=== PATIENT | female | born 1950 | race Caucasian/White ===

== ENCOUNTER → 2018-03-30 07:01 | Outpatient (CLI) | payer MEDICARE, SELFPAY ==
[2018-03-30 10:51] LABS: AST(SGOT) 23 U/L (15-37); Alanine Aminotransfer ALT/SGPT 41 U/L (13-56); Albumin, Serum 3.9 g/dL (3.2-5.0); Alkaline Phosphatase 83 U/L (45-117); Anion Gap 8 (5-15); BUN 17 mg/dL (7-18); BUN/Creat Ratio 18.6 RATIO (10-20); Calcium,Total 9.4 mg/dL (8.5-10.1); Chloride 106 mmol/L (98-107); Cholesterol 222 mg/dL (200); Creatinine, Serum 0.92 mg/dL (0.55-1.02); EST Glomerular Filtration Rate 65 mL/min (>60); Est Glom Filt Rate - Afr Amer 78 mL/min (>60); Ferritin 49 ng/mL (8-252); Globulin 4.1 g/dL (2.2-4.2); Glucose 90 mg/dL (74-106); High Density Lipoprotein 64 mg/dL; Potassium 3.8 mmol/L (3.5-5.1); Sodium Level 142 mmol/L (136-145); Thyroid Stim Hormone (TSH) 1.37 uIU/mL (0.358-3.74); Triglycerides 63 mg/dL; Very Low Density Lipoprotein 13 mg/dL (5-40)
[2018-03-30 11:57] LABS: Microalbumin,Random Urine 9.2 mg/L (NO RANGE EST.); Microalbumin:Creatinine Ratio 6.6 mg/g CRE (<30 mg/g CRE)
== END ==
PROVIDERS: Family Provider Family Medicine; PCP Family Medicine; Referring Provider Family Medicine; Visit Provider Family Medicine
DX: I10 Essential (primary) hypertension (principal); E78.00 Pure hypercholesterolemia, unspecified; R25.2 Cramp and spasm
CPT/HCPCS: 36415; 80053; 80061; 82043; 82570; 82728; 84443

== ENCOUNTER → 2018-10-21 15:08 | Outpatient (CLI) | payer OTHER, SELFPAY ==
[2018-10-21 17:25] LABS: Absolute Lymphocyte Count 2.72 X10^3/ul (0.83-4.51); Absolute Neutrophil Count 4.1 X10^3/uL (2.0-7.7); Basophil# 0.02 X10^3/uL; Basophil% 0.3 % (0-1); Eosinophil# 0.21 X10^3/uL; Eosinophils% 2.8 % (0-5); Hematocrit 40.7 % (37-47); Hemoglobin 13.2 g/dl (12.0-15.0); Lymphocyte # 2.72 X10^3/ul (4.0); Mean Corp Hgb Conc 32.4 g/gl (32-36); Mean Corpuscular Hgb 30.2 pg (27.0-32.0); Mean Corpuscular Volume 93.1 fL (81-99); Mean Platelet Vol. 10.7 fl (6.2-12.0); Monocyte# 0.47 X10^3/uL; Monocyte% 6.2 % (0-10); Neutrophil # 4.11 X10^3/uL (2.7-7.7); Neutrophil % 54.4 % (47-70); Platelet Count 298 K/mm3 (150-450); RBC Distribution Width CV 13.5 % (11.6-14.6); RBC Distribution Width SD 45.8 fl (35.1-43.9); Red Blood Count 4.37 M/mm3 (4.2-5.4); White Blood Count 7.6 K/mm3 (4.4-11.0)
[2018-10-21 17:26] LABS: POSITIVE COUNT NO; POSITIVE DIFFERENTIAL NO; POSITIVE MORPHOLOGY NO
[2018-10-21 17:41] LABS: Vitamin B12 664 pg/mL (211-911)
[2018-10-21 18:13] LABS: AST(SGOT) 20 U/L (15-37); Alanine Aminotransfer ALT/SGPT 37 U/L (13-56); Albumin, Serum 4.1 g/dL (3.2-5.0); Alkaline Phosphatase 75 U/L (45-117); Anion Gap 10 (5-15); BUN 14 mg/dL (7-18); BUN/Creat Ratio 16.5 RATIO (10-20); CRP < 2.90 mg/L (0.0-3.0); Calcium,Total 9.7 mg/dL (8.5-10.1); Chloride 104 mmol/L (98-107); Creatinine, Serum 0.85 mg/dL (0.55-1.02); EST Glomerular Filtration Rate 70 mL/min (>60); Est Glom Filt Rate - Afr Amer 85 mL/min (>60); Ferritin 57 ng/mL (8-252); Globulin 4.3 g/dL (2.2-4.2); Glucose 84 mg/dL (74-106); Potassium 3.3 mmol/L (3.5-5.1); Protein, Total 8.4 g/dL (6.4-8.2); Sodium Level 142 mmol/L (136-145); T4 Free Direct 1.05 ng/dL (0.76-1.46); Thyroid Stim Hormone (TSH) 1.35 uIU/mL (0.358-3.74)
[2018-10-25 19:40] LABS: Anti-Thyroglobulin AB < 1.0 IU/mL (0.0-0.9); Thyroglobulin, Serum Qt. 6.4 ng/mL (1.5-38.5); Thyroid Peroxidase AB 11 IU/mL (0-34)
== END ==
PROVIDERS: Family Provider Family Medicine; PCP Family Medicine; Referring Provider Family Medicine; Visit Provider Family Medicine
DX: L65.9 Nonscarring hair loss, unspecified (principal); R10.31 Right lower quadrant pain
CPT/HCPCS: 80053; 82607; 82728; 82746; 84432; 84439; 84443; 85025; 86140; 86376; 86800

== ENCOUNTER → 2018-10-28 08:11 | Outpatient (CLI) | payer MEDICARE, SELFPAY ==
--- NOTE | 2018-10-28 08:17 | US_ITS ---
STUDY: ULTRASOUND OF THE FEMALE PELVIS - COMPLETE REASON FOR EXAM: Female, 68 years old. Right-sided pelvic pain. History of endometriosis. LMP: The patient is postmenopausal. TECHNIQUE: Transabdominal and Transvaginal TECHNICAL QUALITY: Adequate. COMPARISON: None. FINDINGS: The uterus is anteverted and is in a midline position. The uterus measures 6.3 cm x 3.7 cm by 3.1 cm. Normal uterine cervix. The endometrium is thickened and measures 11 mm in thickness, and is hyperechoic with cystic changes.. There is no demonstrated endometrial mass. There is no demonstrated myometrial mass. I.U.D. - The patient does not have an I.U.D. The right ovary is visualized. The right ovary is enlarged and measures 9 cm x 7.2 cm x 5.8 cm. There is an 8.5 cm x 6.2 Sino by 5 cm pedunculated cystic structure with low-level echoes within it. There is no visualized right adnexal mass or complex lesion. There is normal arterial and normal venous vascularity. The patient is status post left nephrectomy. There is no fluid in the cul-de-sac. The pre void volume of the bladder was 278 ml. Polycystic ovary disease: No. US/Pelvic (Non ) IMPRESSION: Thickened endometrium. Large right ovarian cyst with low-level echoes within it. Electronically Signed: Prasad Marroquin, at 15:33 EDT , Service support ,
--- NOTE | 2018-10-28 08:17 | US_ITS ---
STUDY: ABDOMINAL ULTRASOUND REASON FOR EXAM: Female, 68 years old. Right-sided pain TECHNIQUE: Transabdominal ultrasound was performed with real-time and static brenner scale imaging. TECHNICAL QUALITY: Adequate. COMPARISON: None. FINDINGS: Liver: The liver measures 12.5 cm. There is increased echogenicity consistent with fatty infiltration. The bile ducts are within normal limits. There is hepatic color flow. The direction of portal flow is hepatopetal. There is a 1.7 x 1.5 cm cyst in the left lobe of the liver. Gallbladder: Normal distended gallbladder. The gallbladder wall measures 2 mm. There is a negative sonographic Crisostomo's sign. There is no pericholecystic fluid. There are no gallstones. There is a 4 mm polyp in the gallbladder. Common Bile Duct (C.B.D.): The common bile duct measures 2 mm. Pancreas: The pancreatic head and body are within normal limits. The pancreatic tail is not well visualized. There is no demonstrated pancreatic mass or cyst. Spleen: Normal size of the spleen. The spleen measures 7.0 cm. Right Kidney: Normal size of the right kidney. The right kidney measures 9.80 cm. Normal renal cortex. There is a 1.2 cm parapelvic cyst. There is no right hydronephrosis. Left Kidney: Normal size of the left kidney. The left kidney measures 9.7 cm. Normal renal cortex. There is a 1.6 x 1.3 cm septated cyst in the left kidney. There are additional simple cysts noted. There is no left hydronephrosis. Aorta: The aorta is normal in caliber. Atherosclerotic plaques are noted. I.V.C.: The IVC is patent. There is no ascites. US/Abdomen Complete IMPRESSION: Fatty infiltration of the liver with a simple cyst in the left lobe. 4 mm gallbladder polyp. Otherwise, normal gallbladder. Bilateral renal cysts, including a septated cyst in the left kidney. If indicated, a renal protocol CT or MRI can be performed. Electronically Signed: Onesimo Arce, at 16:58 EDT Tel , Service support ,
== END ==
PROVIDERS: Family Provider Family Medicine; PCP Family Medicine; Referring Provider Family Medicine; Visit Provider Family Medicine
DX: R10.31 Right lower quadrant pain (principal)
CPT/HCPCS: 76700; 76830; 76856

== ENCOUNTER → 2018-11-03 06:06 | Outpatient (CLI) | payer MEDICARE, SELFPAY ==
[2018-11-04 10:22] LABS: Cancer Antigen 125 18.8 U/mL (0.0-38.1)
== END ==
PROVIDERS: Family Provider Family Medicine; PCP Family Medicine; Referring Provider Obstetrics & Gynecology; Visit Provider Obstetrics & Gynecology
DX: R19.00 Intra-abdominal and pelvic swelling, mass and lump, unspecified site (principal)
CPT/HCPCS: 36415; 82378; 86304

== ENCOUNTER 2018-12-23 07:39 | Day surgery (SDC) | payer MEDICARE, SELFPAY ==
[2018-11-05 16:14] VITALS: BMI 24.3
[2018-12-14 13:08] VITALS: BMI 24.3
--- NOTE | 2018-12-17 07:25 | EKG12_ITS ---
Test Reason : PRE-OP Blood Pressure : / mmHG Vent. Rate : 058 BPM Atrial Rate : 058 BPM P-R Int : 142 ms QRS Dur : 084 ms QT Int : 428 ms P-R-T Axes : 052 008 016 degrees QTc Int : [address] abnormality, possible digitalis effect Abnormal ECG Confirmed by ANGELA CASTANEDA, JASMYN ([id number]), proposal editor AMI SMILEY ([id number]) on 12/20/2018 11:54:24 AM Referred By: Rowena Monahan Confirmed By:JASMYN MILLER MD
[2018-12-17 07:47] LABS: Hematocrit 41.3 % (37-47); Hemoglobin 13.5 g/dL (12.0-15.0); Mean Corp Hgb Conc 32.7 g/dL (32-36); Mean Corpuscular Hgb 30.7 pg (27.0-32.0); Mean Corpuscular Volume 93.9 fL (81-99); Mean Platelet Vol. 10.5 fl (6.2-12.0); Platelet Count 259 K/mm3 (150-450); RBC Distribution Width CV 12.9 % (11.6-14.6); RBC Distribution Width SD 44.4 fl (35.1-43.9); White Blood Count 5.3 K/mm3 (4.4-11.0)
[2018-12-17 08:05] LABS: Internal QC Validated? YES +Cl - CLEAR BKGD; Pregnancy, Serum, hCG Quali. NEGATIVE Negative
[2018-12-17 08:08] LABS: Anion Gap 5 (5-15); BUN 19 mg/dL (7-18); BUN/Creat Ratio 19.8 RATIO (10-20); Calcium,Total 9.9 mg/dL (8.5-10.1); Chloride 104 mmol/L (98-107); Creatinine, Serum 0.96 mg/dL (0.55-1.02); EST Glomerular Filtration Rate 61 mL/min (>60); Est Glom Filt Rate - Afr Amer 74 mL/min (>60); Glucose 97 mg/dL (74-106); Potassium 3.7 mmol/L (3.5-5.1); Sodium Level 139 mmol/L (136-145)
[2018-12-23] VITALS (7 sets, daily range): BP systolic 130–146; BP diastolic 66–95; PULSE 43–69; RESP 12–16; TEMP 36–36.6; O2SAT 94–100; BMI 24.2
--- NOTE | 2018-12-23 05:41 | HP.PCM_ITS ---
- Problem List (1) Endometrial thickening on ultrasound Status: Acute Comment: d and c hysteroscopy have symphion available (2) Ovarian cyst, right Status: Acute Comment: plan laparoscopic RSO CW History and Physical Date of Admission: 12/23/18 Intake Vital Signs 12/14/18 Body Mass Index (BMI) 24.3 12/14/18 Height 5 ft 7 in 12/14/18 Weight: 155 lb 8 oz 12/14/18 Body Mass Index (BMI) 24.3 12/14/18 Blood Pressure 124/80 H Intake Visit Reasons: pre op- soap/folder Automatic Lathe Setter Required: No Accompanied by: Is patient in pain?: No Allergies No Known Allergies Allergy (Verified 12/14/18 13:04) Medications biotin 10,000 mcg capsule mcg PO cap 11/05/18 [History Confirmed 12/14/18] calcium carbonate-vitamin D3 600 mg (1,500 mg)-400 unit capsule cap PO cap 11/05/18 [History Confirmed 12/14/18] hydrochlorothiazide 12.5 mg tablet 12.5 mg PO DAILY 11/05/18 [History Confirmed 12/14/18] multivitamin tablet 1 tab PO DAILY 11/05/18 [History Confirmed 12/14/18] omega-3 fatty acids 1,000 mg capsule 1,000 mg PO DAILY 11/05/18 [History Confirmed 12/14/18] potassium citrate ER 5 mEq (540 mg) tablet,extended release 5 meq PO DAILY 11/05/18 [History Confirmed 12/14/18] red yeast rice 600 mg capsule 600 mg PO DAILY 11/05/18 [History Confirmed 12/14/18] Is last menstrual period known: No Post menopausal: Yes Patient : No : No PFSH Medical History Hypokalemia (Acute) Hypertension (Chronic) Surgical History H/O unilateral salpingectomy (Acute) History of (Acute) S/P bunionectomy (Acute) S/P carpal tunnel release (Acute) S/P oophorectomy (Acute) Family History Mother Hypertension Coronary artery sclerosis Renal failure Father Coronary artery sclerosis Heart disease Social History (Updated 12/14/18 @ 13:23 by Rowena Monahan MD) Smoking Status: Former smoker alcohol intake: never substance use type: does not use caffeine: Yes what type of physical activity do you participate in: walking, yoga, weight training frequency: 3-4 times per week seatbelt use: always do you feel safe at home: Yes additional social history: - Krzysztof Patient and are both retired HPI pre op- soap/folder: Details: DARYN LUJAN is a 68 year old who presents for preop appointment. she has endometrial thickening and an ovarian cyst Pelvic ultrasound findings The right ovary is enlarged and measures 9 cm x 7.2 cm x 5.8 cm. There is an 8.5 cm x 6.2 Sino by 5 cm pedunculated cystic structure with low-level echoes within it. There is no visualized right adnexal mass or complex lesion. There is normal arterial and normal venous vascularity. Female Reproductive History Menopausal Symptoms: No night sweats Pregancy History 4 Elective abortions Hx Para 1 Spontaneous abortions 1 Hx # Term Pregnancies 2 Ectopic pregnancies 1 Hx # Pregnancies Multiple births # of living children 1 Past Pregnancies Del. Date Name GA/Weeks Outcome Route Bth Weight Gen Labor Lgth Anesthesia Del Locatn Provider FOB Unknown Anya-1979 ROS Const Constitutional: Denies fatigue, night sweats, weight gain or weight loss ENT ENT: Reports system reviewed and no additional complaints, except as docu Cardio Card: Denies chest pain Resp Resp: Denies cough or dyspnea GI GI: Reports as per HPI; denies abdominal pain, constipation, nausea or vomiting : Denies nipple discharge, urinary frequency, urinary incontinence, urinary hesitancy, urinary urgency, vaginal discharge, vaginal dryness, vaginal odor or vaginal itching Musc Musc: Denies joint pain, back pain or muscle weakness Skin Skin/Breast: Denies hair loss, change in hair, dry skin, breast lump, breast pain, breast skin changes or nipple discharge Neuro Neuro: Reports system reviewed and no additional complaints, except as docu Psych Psych: Reports system reviewed and no additional complaints, except as docu Endo Endo: Denies cold intolerance, excessive sweating, heat intolerance or increased thirst Jose Luis/Lymph Hematologic/Lymphatic: Denies easy bleeding, Denies easy bruising, Denies enlarged lymph nodes Exam Const General: cooperative, healthy appearing, comfortable, no acute distress, well developed Orientation: alert [facility] [place] Head: normal to inspection, normocephalic Ears: hearing grossly normal bilaterally, external ears normal Nose: external nose normal, nares normal Face and sinus: normal facial exam Neck Neck: normal visual inspection, no lymphadenopathy Thyroid: thyroid normal Chest Chest palpation & inspection: normal inspection of the chest Resp Effort & Inspection: normal respiratory effort Auscultation: clear to auscultation bilaterally Cardio Rate: regular rate Rhythm: regular rhythm Heart Sounds: S1 normal, S2 normal GI Inspection: normal to inspection, non-distended Palpation: soft, no hepatosplenomegaly Musc Other: gross motor intact no deficits, full bilateral strength Skin General: no rashes or lesions noted Neuro General: alert, awake, moves all extremities, no focal motor deficits Motor: muscle tone normal throughout Extrem General: normal to inspection, no pedal edema Psych Appearance: grossly normal Mental Status: mental status grossly normal Affect: normal affect Speech and Movement: speech and movement normal Assessment & Plan Problems 1. Ovarian cyst, right N83.201 plan laparoscopic RSO CW 2. Endometrial thickening on ultrasound R93.89 d and c hysteroscopy have symphion available Plan discussed surgical risks including risks of anesthesia, infection, bleeding, injury to bowel, bladder or blood vessels, and patient wishes to proceed with surgery. Coding Level of Care Code No Charge Diagnoses Ovarian cyst, right N83.201 Endometrial thickening on ultrasound R93.89 UPDATE- I have seen the patient and performed any clinically relevant updates to the history and physical exam. Rowena Monahan MD
--- NOTE | 2018-12-23 09:15 | OV_PTH ---
PATIENT: DARYN LUJAN LOC: [facility] [place] U#:[id number] AGE/SX: 68/F ROOM: RE12/23/[address]: Dr. Rowena Monahan MD : 1950 BED: DIS: 12/23/2018 SPEC #: [id number] RECD: 12/23/18 12:21 STATUS: ABENA IRASEMA #: [id number] CROW: 12/23/18 09:[address]: Rowena Monahan DEPT: SURGICAL PATHOLOGY RECD BY: Malik Lemon ENTERED: 12/23/18 13:33 SP TYPE: OVARY OTHR DR: Dr. Torrey Allison MD Tissues: A - Right ovary B - Endometrium, NOS Procedures: Surgery Specimen Level IV Surgery Specimen Level V HEADER OPERATION: Hysteroscopy, D & C PRE-OP DIAGNOSIS: Endometrial polyp, endometrial thickening TISSUE SUBMITTED: A - Right ovary, B - Endometrial curettings MICROSCOPIC DIAGNOSIS A. Right ovary: Consistent with papillary cystadenofibroma. Negative for malignancy. B. Endometrial curettings: Consistent with fragments of benign endometrial polyp with simple cystic hyperplasia without atypia. SJ:gabriel 12/24/18 COMMENT Please correlate with corresponding cytology specimen ([id number]). Case has been reviewed in consultation with Dr. Logan who concurs with the above diagnosis. IDC:AM MICROSCOPIC DESCRIPTION Slides are reviewed. GROSS DESCRIPTION A - Received in fixative is one container labeled with the patient's name and designated right ovary. The specimen consists of a previously, partially opened cystic ovary with attached adipose tissue weighing 29 gm and measuring 7 x 5.5 x 3.5 cm. The outer surface is pink, slightly ragged without any papillation. The outer surface is inked black. The cyst wall shows multiple area of papillation. The cyst wall measures up to 1 cm in thickness. Social Work Faculty Member sections are submitted in six cassettes. Cassette 6 also contains the attached adipose tissue. B - Received in fixative is one container labeled with the patient's name and designated endometrial tissue. The specimen consists of multiple irregular fragments of whalen soft tissue that in aggregate measure 4 x 3 x 0.3 cm. The entire specimen is submitted in two cassettes. / SHLOMO:gabriel 12/23/18 TC:1 CPT: 15808, 74713
--- NOTE | 2018-12-23 09:15 | FLU_PTH ---
PATIENT: DARYN LUJAN LOC: [facility] [place] U#:[id number] AGE/SX: 68/F ROOM: RE12/23/[address]: Dr. Rowena Monahan MD : 1950 BED: DIS: 12/23/2018 SPEC #: [id number] RECD: 12/23/18 12:21 STATUS: ABENA IRASEMA #: [id number] CROW: 12/23/18 09:[address]: Rowena Monahan DEPT: CYTOLOGY RECD BY: Malik Lemon ENTERED: 12/23/18 13:32 SP TYPE: Fluid OTHR DR: Dr. Torrey Allison MD Tissues: A - Endometrium, NOS B - OVARIAN CYST Procedures: Special Stain Group II Surgery Specimen Level IV Cytospin Fluid HEADER OPERATION: Hysteroscopy, D & C PRE-OP DIAGNOSIS: Endometrial polyp, endometrial thickening TISSUE SUBMITTED: A - Cell washings for cytology, B - Right ovarian cyst contents DIAGNOSIS CYTOLOGY A. Cell washings for cytology (cytospin and cell block): Negative for malignant cells. See cytology study and comment. B. Right ovarian cyst contents: Negative for malignant cells. See cytology study and comment. SJ:rg 12/24/18 COMMENT Please also correlate with corresponding surgical specimen ([id number]) right ovary with diagnosis of papillary cystadenofibroma. Case has been reviewed in consultation with Dr. Logan who concurs with the above diagnosis. IDC:AM CYTOLOGY STUDY Slides are reviewed. A. The specimen consists of numerous strips and clusters of benign mesothelial cells. B. The specimen consists of numerous macrophages and benign epithelial cells. CYTOLOGY GROSS A - Received is 42 ml of clear colorless fluid labeled with the patient's name and and designated per the requisition as cell washings. Submitted for cytology preparation including cell block. B - Received is 47 ml of clear colorless fluid labeled with the patient's name and and designated per the requisition as right ovarian cyst contents. Submitted for cytology preparation including cell block. / 12/23/18 TC:5 CPT: 46882 x2, 63105 x2
--- NOTE | 2018-12-23 09:40 | OP.PCM_ITS ---
Problem List (1) Endometrial thickening on ultrasound Status: Acute Comment: d and c hysteroscopy have symphion available (2) Ovarian cyst, right Status: Acute Comment: plan laparoscopic RSO CW Report of Operation Date of Procedure: 12/23/18 Pre-Operative Diagnosis: ovarian cyst and endometrial polyp Post-Operative Diagnosis: same Surgery/Procedure Performed:: Laparoscopic right oophorectomy D&C operative hysteroscopy Symphion removal of polyp Description of Surgical Findings:: right ovarian cyst with mucinous fluid and scar tissue omental around entire ovary and to right pelvic side wall wood [employer] wood [employer] labourer: Adrián Rodríguez Type of Anesthesia:: General Special Medications: none Specimen's removed: emc, right ovary, pelvic washings Drains: none Estimated Blood Loss (mL): 25 Fluids Replaced: Crystalloid Description of Procedure: Patient was taken in the operating room and was placed under general anesthesia was prepped and draped in normal sterile fashion in the dorsal lithotomy position. Bladder was drained of clear urine and SCDs were on preoperatively. Uterus was sounded and a uterine manipulator was placed after dilating. Attention was then paid to the abdominal portion of the procedure and the umbilicus was elevated with towel clamps and injected with Marcaine and after a 5 mm incision was made and the Veress needle was entered into the abdomen confirmed to be intra-abdominal with a low opening pressure of less than 5 mmHg. Abdomen was insufflated with CO2 gas and a 5 mm optical trocar was placed under direct visualization. A right and left lower quadrant 5 mm ports placed under direct visualization. Uterus was well visualized and left fallopian tube and ovary were noted to be absent in the right fallopian tube was noted to be absent with a significantly enlarged and abnormal appearing right ovary with omental adhesions covering the entire surface and the ovary attached to the right ovarian fossa. Omentum was attached to the right anterior lower abdominal wall. Omental to anterior abdominal wall adhesions were taken down with the LigaSure device followed by the omental to ovarian adhesions and the ovary was freed up out of the ovarian fossa but spontaneous drainage of the cyst occurred for mucinous fluid. Pelvic washings had been taken prior to the cyst rupture. Cyst fluid was removed and sent to pathology for analysis. Adhesio lysis was performed to free the right ovary up from the pelvic sidewall and with good visualization of the ureter, dissection was made superiorly and medially and the ovary was removed from the pelvic sidewall attachments. Ovary was placed in a bag and removed through the umbilical site which was closed with 0 Vicryl through the fascia several stitches. Liver and upper abdomen were visualized notably within normal limits and no other gross abnormalities were seen in the abdomen. All instruments removed from the abdomen after gas was desufflated. Port sites were closed with 3-0 Monocryl Steri's and op sites were applied. A weighted speculum was placed in the vagina and the anterior lip of the cervix was grasped with a single-tooth tenaculum. A paracervical block was placed with 1% lidocaine. Cervix was progressively dilated to allow passage of a 5 mm hysteroscope. The lining was fully visualized and noted to have a large irregular appearing polyp attaching at the left superior fundal part of the uterine lining. Uterine sounded to 8 cm. Using the symphion device, the entire lesion was progressively removed without complications. Direct visual curettage was performed using the device , and all specimens were sent to pathology. All instruments were removed from the vagina and excellent hemostasis was noted. Patient was awoken and taken to recovery in stable condition. All instruments removed from the vagina and patient was awoken and taken recovery in stable condition. Grafts/Implants Used: none - Complications none Multi Select Codes - Urinary/Genital Urinary/Genital CPT Codes: 19071 Hysteroscopy biopsy, 76397 Oophorectomy
--- NOTE | 2018-12-23 09:41 | PCM.DC.TUB ---
Discharge Diet: No Restrictions - Increase fluid intake for the next 48 hours. Discharge Activity: Return to Normal Activity, May Drive - when you are no longer taking narcotic pain medications., May Shower, May Take a Tub Bath - in 7 days Additional Activity Instructions:: Ambulate often the next week after surgery. Nothing in the vagina for 5 days. Call your doctor if your incision/area has: Continuous Slow Oozing, Sudden Increased Bleeding, Increased Pain/ Swelling, Increased Redness, Foul Smelling Discharge Call your doctor if you observe: Fever of 101 or Higher Allergies/Adverse Reactions: Allergies No Known Allergies Allergy (Verified 12/23/18 08:05) Medications to take at Discharge biotin 10,000 mcg capsule 10,000 mcg PO DAILY cap 11/05/18 calcium carbonate-vitamin D3 600 mg (1,500 mg)-400 unit capsule 1 cap PO DAILY cap 11/05/18 hydrochlorothiazide 12.5 mg tablet 12.5 mg PO DAILY 11/05/18 multivitamin tablet 1 tab PO DAILY 11/05/18 potassium citrate ER 5 mEq (540 mg) tablet,extended release 5 meq PO DAILY 11/05/18 red yeast rice 600 mg capsule 1,200 mg PO DAILY 11/05/18 [place]-3 Fatty Acids/Fish Oil [[place]-3 Fish Oil 1,760 mg Stgl] 1 ea PO DAILY 12/16/18 Primary Care Physician: Torrey Allison MD [Primary Care Provider] - Test Results: Test results from this visit will be discussed in further detail at your follow-up appointment, if applicable. Please Follow Up With: Rowena Monahan MD - [phone]
[2018-12-23] MEDS: Bupivacaine 0.25% 30 ML Vial (11:00)
== END 2018-12-23 14:14 | disposition home or self-care (01) ==
LOC: SDC 07:40 → AC 07:40
PROVIDERS: Family Provider Family Medicine; PCP Family Medicine; Referring Provider Obstetrics & Gynecology; Visit Provider Obstetrics & Gynecology
PROC: 0UB98ZZ Excision of Uterus, Via Natural or Artificial Opening Endoscopic (ICD-10-PCS; CPT 58558; principal; 2018-12-23 09:00)
PROC: (CPT 58720; 2018-12-23 09:00)
DX: N84.0 Polyp of corpus uteri (principal); N83.201 Unspecified ovarian cyst, right side; R93.89 Abnormal findings on diagnostic imaging of other specified body structures; E87.6 Hypokalemia; I10 Essential (primary) hypertension; E78.00 Pure hypercholesterolemia, unspecified; K21.9 Gastro-esophageal reflux disease without esophagitis; F41.9 Anxiety disorder, unspecified; Z79.899 Other long term (current) drug therapy; Z78.0 Asymptomatic menopausal state; Z87.891 Personal history of nicotine dependence
CPT/HCPCS: 58558; 58661; 36415; 80048; 84703; 85027; 86850; 86900; 88108; 88305; 88307; 88313; 93005; J7120; J2405

== ENCOUNTER → 2019-01-06 10:49 | Outpatient (CLI) | payer MEDICARE, SELFPAY ==
[2018-12-23 08:13] VITALS: BMI 24.2
[2019-01-06 12:41] LABS: Anion Gap 2 (5-15); BUN 13 mg/dL (7-18); BUN/Creat Ratio 14.6 RATIO (10-20); Calcium,Total 9.7 mg/dL (8.5-10.1); Chloride 107 mmol/L (98-107); Creatinine, Serum 0.89 mg/dL (0.55-1.02); EST Glomerular Filtration Rate 67 mL/min (>60); Est Glom Filt Rate - Afr Amer 80 mL/min (>60); Glucose 88 mg/dL (74-106); Sodium Level 140 mmol/L (136-145)
== END ==
PROVIDERS: Family Provider Family Medicine; PCP Family Medicine; Referring Provider Family Medicine; Visit Provider Family Medicine
DX: Z00.00 Encounter for general adult medical examination without abnormal findings (principal)
CPT/HCPCS: 36415; 80048

== ENCOUNTER → 2019-01-31 10:09 | Outpatient (CLI) | payer MEDICARE, SELFPAY ==
[2018-12-23 08:13] VITALS: BMI 24.2
[2019-01-10 11:02] VITALS: BMI 24.2
--- NOTE | 2019-01-31 10:11 | BI_ITS ---
MAMMOGRAPHY - BILATERAL SCREENING REASON FOR EXAM: Female, 68 years old. Routine annual screening examination. PERTINENT HISTORY: Non-contributory. TECHNIQUE: Digital bilateral breast sophia (3D mammographic acquisition) in the CC and MLO projections. 2-D mediolateral oblique (MLO) and craniocaudad (CC) views of both breasts were obtained. CAD: Full Field Digital Mammography with Computer Added Detection was performed. COMPARISON: Comparison is made with prior study dated April 28, 2017 and April 17, 2014. FINDINGS: Breast Composition: There are scattered areas of fibroglandular density. There are no dominant masses or suspicious calcifications. No other significant abnormalities are identified. There has been no significant change since the prior study. BI/SCREEN MAMM (CAD) W/SOPHIA BILAT IMPRESSION: Stable bilateral screening mammogram. Yearly follow-up mammogram recommended. (A) ASSESSMENT CATEGORY: BIRADS Category 1: Negative. A letter regarding these results will be sent to the patient by the facility within 30 days. Approximately 10% of breast cancers are not detected by mammography. A normal mammogram should not delay biopsy of a clinically suspicious abnormality. [id number] Electronically Signed: Prasad Marroquin, at 11:21 EDT , Service support ,
== END ==
PROVIDERS: Family Provider Family Medicine; PCP Family Medicine; Referring Provider Family Medicine; Visit Provider Family Medicine
DX: Z12.31 Encounter for screening mammogram for malignant neoplasm of breast (principal)
CPT/HCPCS: 77063; 77067

== ENCOUNTER → 2019-07-06 09:30 | Outpatient (CLI) | payer OTHER, SELFPAY ==
--- NOTE | 2019-07-06 | EMB_PTH ---
PATIENT: DARYN LUJAN LOC: [facility] U#:[id number] AGE/SX: 74/F ROOM: RE07/06/[address]: Dr. Rowena Monahan MD : 1950 BED: DIS: SPEC #: [id number] RECD: 07/06/19 13:48 STATUS: ABENA MCGILLPepe #: [id number] CROW: 07/06/19 00:[address]: Rowena Monahan DEPT: SURGICAL PATHOLOGY RECD BY: Nathaniel Banegas ENTERED: 07/06/19 14:08 SP TYPE: ENDOM BX/C CHANG DR: Dr. Torrey Allison MD Tissues: Endometrium, NOS Procedures: Surgery Specimen Level IV HEADER OPERATION: Endometrial biopsy PRE-OP DIAGNOSIS: Endometrial thickening TISSUE SUBMITTED: Endometrial biopsy MICROSCOPIC DIAGNOSIS Endometrium, biopsy: Rare strips of benign glandular epithelium. AM:gabriel 07/07/19 COMMENT Case has been reviewed in consultation with Dr. Spann who concurs with the above diagnosis. IDC:SHLOMO MICROSCOPIC DESCRIPTION Slides are reviewed. GROSS DESCRIPTION Received is one container labeled with the patient's name and not further designated. The specimen consists of a scant amount of soft tissue measuring <0.1 cm in greatest dimension. The specimen is totally submitted for cell block preparation. / SHLOMO:gabriel 07/06/19 TC:5 CPT: 22608
[2019-07-06 09:02] VITALS: BMI 24.8
[2019-07-06 10:12] LABS: Anion Gap 4 (5-15); BUN 17 mg/dL (7-18); BUN/Creat Ratio 13.5 RATIO (10-20); Calcium,Total 9.8 mg/dL (8.5-10.1); Chloride 108 mmol/L (98-107); Creatinine, Serum 1.26 mg/dL (0.55-1.02); EST Glomerular Filtration Rate 45 mL/min (>60); Est Glom Filt Rate - Afr Amer 54 mL/min (>60); Glucose 107 mg/dL (74-106); Potassium 3.8 mmol/L (3.5-5.1); Sodium Level 139 mmol/L (136-145)
[2019-07-06 10:21] LABS: Microalbumin,Random Urine 33.2 mg/L (NO RANGE EST.); Microalbumin:Creatinine Ratio 10.5 mg/g CRE (<30 mg/g CRE)
== END ==
PROVIDERS: PCP Family Medicine; Visit Provider Obstetrics & Gynecology
DX: I10 Essential (primary) hypertension (principal); R93.89 Abnormal findings on diagnostic imaging of other specified body structures
CPT/HCPCS: 36415; 80048; 82043; 82570; 88305

== ENCOUNTER → 2020-01-02 07:12 | Outpatient (CLI) | payer MEDICARE, SELFPAY ==
[2019-07-06 09:02] VITALS: BMI 24.8
[2020-01-02 09:55] LABS: Absolute Lymphocyte Count 2.06 X10^3/uL (0.83-4.51); Absolute Neutrophil Count 2.9 X10^3/uL (2.0-7.7); Basophil# 0.03 X10^3/uL; Basophil% 0.5 % (0-1); Eosinophil# 0.22 X10^3/uL; Eosinophils% 3.9 % (0-5); Hematocrit 41.3 % (37-47); Hemoglobin 12.9 g/dL (12.0-15.0); Lymphocyte # 2.06 X10^3/ul (4.0); Lymphocyte % 36.7 % (19-41); Mean Corp Hgb Conc 31.2 g/dL (32-36); Mean Corpuscular Hgb 29.3 pg (27.0-32.0); Mean Corpuscular Volume 93.9 fL (81-99); Mean Platelet Vol. 10.7 fl (6.2-12.0); Monocyte# 0.43 X10^3/uL; Monocyte% 7.7 % (0-10); NRBC Flagged by Analyzer 0 % (0-5); Neutrophil # 2.87 X10^3/uL (2.7-7.7); Platelet Count 295 K/mm3 (150-450); RBC Distribution Width CV 12.8 % (11.6-14.6); RBC Distribution Width SD 44.2 fl (35.1-43.9); White Blood Count 5.6 K/mm3 (4.4-11.0)
[2020-01-02 10:35] LABS: ALB/GLOB Ratio 1.1 RATIO (0.9-2.4); AST(SGOT) 20 U/L (15-37); Alanine Aminotransfer ALT/SGPT 29 U/L (13-56); Alkaline Phosphatase 82 U/L (45-117); Anion Gap 7 (5-15); BUN 15 mg/dL (7-18); Calcium,Total 9.6 mg/dL (8.5-10.1); Chloride 109 mmol/L (98-107); Cholesterol 227 mg/dL (200); Creatinine, Serum 0.94 mg/dL (0.55-1.02); EST Glomerular Filtration Rate 63 mL/min (>60); Est Glom Filt Rate - Afr Amer 76 mL/min (>60); Globulin 3.7 g/dL (2.2-4.2); Glucose 89 mg/dL (74-106); High Density Lipoprotein 60 mg/dL; Potassium 3.6 mmol/L (3.5-5.1); Protein, Total 7.7 g/dL (6.4-8.2); Sodium Level 143 mmol/L (136-145); Thyroid Stim Hormone (TSH) 1.53 uIU/mL (0.358-3.74); Triglycerides 110 mg/dL; Very Low Density Lipoprotein 22 mg/dL (5-40)
== END ==
PROVIDERS: PCP Family Medicine; Referring Provider Family Medicine; Visit Provider Family Medicine
DX: I10 Essential (primary) hypertension (principal); M19.90 Unspecified osteoarthritis, unspecified site
CPT/HCPCS: 36415; 80053; 80061; 84443; 85025

== ENCOUNTER → 2020-02-02 14:43 | Outpatient (CLI) | payer MEDICARE, SELFPAY ==
[2019-07-06 09:02] VITALS: BMI 24.8
--- NOTE | 2020-02-02 14:44 | BI_ITS ---
MAMMOGRAPHY - BILATERAL SCREENING REASON FOR EXAM: Female, 69 years old. Routine annual screening examination. PERTINENT HISTORY: Non-contributory. TECHNIQUE: Digital bilateral breast sophia (3D mammographic acquisition) in the CC and MLO projections. 2-D mediolateral oblique (MLO) and craniocaudad (CC) views of both breasts were obtained. CAD: Full Field Digital Mammography with Computer Added Detection was performed. COMPARISON: Comparison is made with prior study dated 01/31/2019 and 04/28/2017. FINDINGS: Breast Composition: There are scattered areas of fibroglandular density. There are no dominant masses or suspicious calcifications. No other significant abnormalities are identified. There has been no significant change since the prior study. BI/SCREEN MAMM (CAD) W/SOPHIA BILAT IMPRESSION: Stable bilateral screening mammogram. Yearly follow-up mammogram recommended. (A) ASSESSMENT CATEGORY: BIRADS Category 1: Negative. A letter regarding these results will be sent to the patient by the facility within 30 days. Approximately 10% of breast cancers are not detected by mammography. A normal mammogram should not delay biopsy of a clinically suspicious abnormality. [id number] Electronically Signed: Prasad Marroquin, at 16:13 EDT , Service support ,
--- NOTE | 2020-02-02 14:46 | BD_ITS ---
STUDY: DUAL ENERGY X-RAY ABSORPTIOMETRY / DXA REASON FOR EXAM: Female, 69 years old. Age of tatum- 49. Pat is 159.7# and 66.75 and quot; a loss of 1 and quot; per pat. Past hx of smoking. Past hx of using a diuretic in BPM. Takes 600mg calcium and a multi-vit. Exercises moderately. Fam hx of osteo-grandmothetr. TECHNIQUE: Bone Mineral Density (BMD) measurements of lumbar spine and bilateral hips were obtained. COMPARISON: Comparison is made with prior study dated 04/30/2017. FINDINGS: Lumbar Spine (L1-L4): g/cm2 (1.052) / T-score (-1.0) / Z-score (0.7) Findings are suggestive of normal bone density with a low fracture risk. Left Femur Total: g/cm2 (1.015) / T-score (0.1) / Z-score (1.5) Left Femoral Neck: g/cm2 (0.928) / T-score (-0.8) / Z-score (0.9) Right Femur Total: g/cm2 (1.024) / T-score (0.1) / Z-score (1.6) Right Femoral Neck: g/cm2 (0.888) / T-score (-1.1) / Z-score (0.6) The T-Scores on the most recent prior examination were: Lumbar Spine (L1-L4): There has been improvement of bone density since the previous examination. Left Femur Total: which represents a worsening of 2.3%. Right Femur Total: which represents a worsening of 0.8%. BD/Dexa Bone Density Study IMPRESSION: The patient is considered osteopenic as outlined below according to World Josh Organization (WHO) criteria with a low fracture risk. There has been worsening of bone density since the previous examination. Reference Information: The T-score is the number of standard deviations above or below the standard which is normal for young adults at their peak bone mineral density. The World Health Organization (WHO) interprets the T-scores as follows: Above -1 Normal bone density Between -1 and -2.5 Osteopenia Equal to / or below -2.5 Osteoporosis As a practical clinical guideline, osteopenia may be graded as follows: Mild -1 through -1.5 Moderate -1.6 through -2.0 Severe -2.1 through -2.4 The Z-score is the number of standard deviations above or below age-matched controls. A Z-score of less than -1.5 would be considered abnormal. References: 1. NIH Osteoporosis and Related Bone Diseases http://www.osteo.org 2. International Society for Clinical Densitometry http://www.iscd.org 3. National Osteoporosis Foundation http://www.nof.org Electronically Signed: Prasad Marroquin, at 15:23 EDT , Service support ,
== END ==
PROVIDERS: PCP Family Medicine; Referring Provider Family Medicine; Visit Provider Family Medicine
DX: Z12.31 Encounter for screening mammogram for malignant neoplasm of breast (principal); Z78.0 Asymptomatic menopausal state; M85.80 Other specified disorders of bone density and structure, unspecified site; Z87.891 Personal history of nicotine dependence
CPT/HCPCS: 77063; 77067; 77080

== ENCOUNTER → 2020-04-25 | Outpatient (CLI) | payer MEDICARE, SELFPAY ==
[2020-04-25 10:13] VITALS: BMI 25.0
--- NOTE | 2020-04-25 10:30 | EMB_PTH ---
PATIENT: DARYN LUJAN LOC: [facility] U#:[id number] AGE/SX: 69/F ROOM: RE04/25/[address]: RENEA Barber : 1950 BED: DIS: 04/25/2020 SPEC #: [id number] RECD: 04/25/20 12:14 STATUS: ABENA IRASEMA #: [id number] CROW: 04/25/20 10:[address]: Luna Jackson NP DEPT: SURGICAL PATHOLOGY RECD BY: Hiwot You ENTERED: 04/25/20 13:30 SP TYPE: ENDOM BX/C CHANG DR: Dr. Torrey Allison MD Tissues: Endometrium, NOS Procedures: Surgery Specimen Level IV HEADER OPERATION: Endometrial biopsy PRE-OP DIAGNOSIS: PMB TISSUE SUBMITTED: Endometrial biopsy scant amount MICROSCOPIC DIAGNOSIS Endometrium, biopsy: Scant strips of benign superficial glandular mucosa. AM:gabriel 04/26/20 MICROSCOPIC DESCRIPTION Slides are reviewed. GROSS DESCRIPTION Received is one container labeled with the patient's name and not further designated. The specimen consists of light whalen mucoid material aggregating to 1 x 1 x <0.1 cm. The specimen is totally submitted in one cassette. / AM:gabriel 04/25/20 TC:5 CPT: 09862
== END | disposition home or self-care (01) ==
LOC: LABSPEC 12:38
PROVIDERS: PCP Family Medicine; Referring Provider Nurse Practitioner Women's Health; Visit Provider Nurse Practitioner Women's Health
DX: N95.0 Postmenopausal bleeding (principal)
CPT/HCPCS: 88305

== ENCOUNTER → 2020-04-30 09:18 | Outpatient (CLI) | payer MEDICARE, SELFPAY ==
[2020-04-25 10:13] VITALS: BMI 25.0
--- NOTE | 2020-04-30 09:20 | US_ITS ---
STUDY: ULTRASOUND TRANSVAGINAL CLINICAL: Female, 69 years old. INTERMITTANT PELVIC PAIN AND BLOATING -- BILAT OOPHORECTOMY TECHNIQUE: Transabdominal and Transvaginal COMPARISON: 10/28/2018 FINDINGS: Normal uterine size measuring 7.3 x 4.2 x 2.4 cm in maximal craniocaudal dimension. Myometrium appears slightly heterogeneous however there is no focal fibroid demonstrated. There are no myometrial masses. Normal endometrial thickness measuring 6 mm. There are no endometrial masses, and there is no fluid in the endometrial cavity. Normal uterine cervix. Normal ovaries are not visualized status post BSO. There is no free fluid in the pelvis. US/Pelvic (Non ) IMPRESSION: Heterogeneous appearance to the uterine myometrium without well-defined fibroid.. No adnexal mass status post bilateral oophorectomy Electronically Signed: Malvin Zapata MD at 22:38 EST , Service support ,
--- NOTE | 2020-04-30 09:20 | US_ITS ---
STUDY: ULTRASOUND TRANSVAGINAL CLINICAL: Female, 69 years old. INTERMITTANT PELVIC PAIN AND BLOATING -- BILAT OOPHORECTOMY TECHNIQUE: Transabdominal and Transvaginal COMPARISON: 10/28/2018 FINDINGS: Normal uterine size measuring 7.3 x 4.2 x 2.4 cm in maximal craniocaudal dimension. Myometrium appears slightly heterogeneous however there is no focal fibroid demonstrated. There are no myometrial masses. Normal endometrial thickness measuring 6 mm. There are no endometrial masses, and there is no fluid in the endometrial cavity. Normal uterine cervix. Normal ovaries are not visualized status post BSO. There is no free fluid in the pelvis. US/Transvaginal Non- IMPRESSION: Heterogeneous appearance to the uterine myometrium without well-defined fibroid.. No adnexal mass status post bilateral oophorectomy Electronically Signed: Malvin Zapata MD at 22:38 EST , Service support ,
== END ==
PROVIDERS: PCP Family Medicine; Referring Provider Nurse Practitioner Women's Health; Visit Provider Nurse Practitioner Women's Health
DX: R10.2 Pelvic and perineal pain (principal)
CPT/HCPCS: 76830; 76856

== ENCOUNTER 2020-07-11 13:24 | Outpatient (RCR) | payer MEDICARE, SELFPAY ==
[2020-04-25 10:13] VITALS: BMI 25.0
== END 2020-07-11 23:59 ==
LOC: IMMUN 13:24
PROVIDERS: PCP Family Medicine; Referring Provider Family Medicine; Visit Provider Family Medicine
DX: Z23 Encounter for immunization (principal)
CPT/HCPCS: 0011A; 0012A; 91301

== ENCOUNTER → 2020-07-12 09:12 | Outpatient (CLI) | payer OTHER, SELFPAY ==
[2020-04-25 10:13] VITALS: BMI 25.0
[2020-07-12 09:15] LABS: Bacteria 0 SEEN /hpf (None Seen); Mucous, Urine 0 SEEN /hpf (<or=2+); Red Blood Cells-Urine 0 SEEN /hpf (0-5)
[2020-07-12 10:09] LABS: Color, Urine Yellow (Yellow); Glucose, Dipstick Normal (Normal); Ketone-Dipstick 5 mg/dl (Negative); Leukocyte Esterase-Dipstick 100 /ul (Negative); Nitrite-Dipstick Negative (Negative); Occult Blood-Urine Negative /ul (Negative); Protein-Dipstick 15 mg/dl (Negative); Urine Bilirubin Dipstick Negative (Negative); Urine Clarity Clear (Clear); Urine Urobilinogen Normal (Normal); Urine pH 6.5 (5.0 - 8.0)
[2020-07-12 10:25] LABS: Squamous Epithelial Cells - UA 0-5 SEEN /hpf (5-10)
[2020-07-12 10:26] LABS: White Blood Cells 0-5 SEEN /hpf (0-5)
[2020-07-12 10:39] LABS: Anion Gap 5 (5-15); BUN 21 mg/dL (7-18); BUN/Creat Ratio 22.3 RATIO (10-20); Calcium,Total 10.3 mg/dL (8.5-10.1); Chloride 101 mmol/L (98-107); Creatinine, Serum 0.94 mg/dL (0.55-1.02); EST Glomerular Filtration Rate 62 mL/min (>60); Est Glom Filt Rate - Afr Amer 75 mL/min (>60); Glucose 103 mg/dL (74-106); Potassium 4.5 mmol/L (3.5-5.1); Sodium Level 135 mmol/L (136-145)
[2020-07-12 10:59] LABS: Microalbumin,Random Urine 19.5 mg/L (NO RANGE EST.); Microalbumin:Creatinine Ratio 28.6 mg/g CRE (<30 mg/g CRE)
== END ==
PROVIDERS: PCP Family Medicine; Referring Provider Family Medicine; Visit Provider Family Medicine
DX: I10 Essential (primary) hypertension (principal)
CPT/HCPCS: 36415; 80048; 81001; 82043; 82570

== ENCOUNTER → 2021-01-11 07:25 | Outpatient (CLI) | payer OTHER, SELFPAY ==
[2021-01-11 10:40] LABS: Vitamin D,25 Hydroxy 24.8 ng/mL
[2021-01-11 10:49] LABS: ALB/GLOB Ratio 1.1 RATIO (0.9-2.4); AST(SGOT) 20 U/L (15-37); Alanine Aminotransfer ALT/SGPT 32 U/L (13-56); Albumin, Serum 4.2 g/dL (3.2-5.0); Alkaline Phosphatase 77 U/L (45-117); Anion Gap 8 (5-15); BUN 17 mg/dL (7-18); BUN/Creat Ratio 17.6 RATIO (10-20); Calcium,Total 9.7 mg/dL (8.5-10.1); Chloride 104 mmol/L (98-107); Cholesterol 250 mg/dL (200); Creatinine, Serum 0.97 mg/dL (0.55-1.02); EST Glomerular Filtration Rate 60 mL/min (>60); Est Glom Filt Rate - Afr Amer 73 mL/min (>60); Globulin 3.7 g/dL (2.2-4.2); Glucose 88 mg/dL (74-106); High Density Lipoprotein 60 mg/dL; Potassium 3.6 mmol/L (3.5-5.1); Protein, Total 7.9 g/dL (6.4-8.2); Sodium Level 140 mmol/L (136-145); Triglycerides 100 mg/dL; Very Low Density Lipoprotein 20 mg/dL (5-40)
[2021-01-11 10:57] LABS: PTHIN 47.8 pg/mL (18.4-80.1)
== END ==
PROVIDERS: PCP Family Medicine; Referring Provider Family Medicine; Visit Provider Family Medicine
DX: E78.00 Pure hypercholesterolemia, unspecified (principal); M85.80 Other specified disorders of bone density and structure, unspecified site
CPT/HCPCS: 36415; 80053; 80061; 82306; 83970

== ENCOUNTER 2021-07-05 09:42 | Outpatient (CLI) | payer OTHER, SELFPAY ==
[2021-07-05 12:08] LABS: Anion Gap 6 (5-15); BUN 19 mg/dL (7-18); BUN/Creat Ratio 20.3 RATIO (10-20); Calcium,Total 9.7 mg/dL (8.5-10.1); Chloride 106 mmol/L (98-107); Creatinine, Serum 0.93 mg/dL (0.55-1.02); EST Glomerular Filtration Rate 63 mL/min (>60); Est Glom Filt Rate - Afr Amer 76 mL/min (>60); Glucose 83 mg/dL (74-106); Potassium 4.2 mmol/L (3.5-5.1); Sodium Level 138 mmol/L (136-145)
[2021-07-05 12:25] LABS: Vitamin D,25 Hydroxy 21.1 ng/mL
== END 2021-07-05 23:59 | disposition home or self-care (01) ==
LOC: MFPLAB 09:46
PROVIDERS: PCP Family Medicine; Referring Provider Family Medicine; Visit Provider Family Medicine
DX: M85.80 Other specified disorders of bone density and structure, unspecified site (principal); I10 Essential (primary) hypertension
CPT/HCPCS: 36415; 80048; 82306

== ENCOUNTER → 2022-01-08 | Outpatient (CLI) | payer OTHER, SELFPAY ==
[2022-01-08 10:41] LABS: Vitamin D,25 Hydroxy 31.8 ng/mL
[2022-01-08 10:46] LABS: Microalbumin:Creatinine Ratio 12.3 mg/g CRE (<30 mg/g CRE)
[2022-01-08 10:52] LABS: AST(SGOT) 20 U/L (15-37); Alanine Aminotransfer ALT/SGPT 25 U/L (13-56); Albumin, Serum 3.8 g/dL (3.2-5.0); Alkaline Phosphatase 74 U/L (45-117); Anion Gap 5 (5-15); BUN 18 mg/dL (7-18); Calcium,Total 9.5 mg/dL (8.5-10.1); Chloride 104 mmol/L (98-107); Cholesterol 223 mg/dL (200); EST Glomerular Filtration Rate 58 mL/min (>60); Est Glom Filt Rate - Afr Amer 70 mL/min (>60); Globulin 3.9 g/dL (2.2-4.2); Glucose 91 mg/dL (74-106); High Density Lipoprotein 56 mg/dL; Potassium 3.7 mmol/L (3.5-5.1); Protein, Total 7.7 g/dL (6.4-8.2); Sodium Level 138 mmol/L (136-145); Triglycerides 94 mg/dL; Very Low Density Lipoprotein 19 mg/dL (5-40)
== END | disposition home or self-care (01) ==
LOC: MTLAB 07:13
PROVIDERS: PCP Family Medicine; Referring Provider Family Medicine; Visit Provider Family Medicine
DX: I10 Essential (primary) hypertension (principal); E78.00 Pure hypercholesterolemia, unspecified; R79.89 Other specified abnormal findings of blood chemistry
CPT/HCPCS: 36415; 80053; 80061; 82043; 82306; 82570; 84443

== ENCOUNTER → 2022-01-17 | Outpatient (CLI) | payer MEDICARE, SELFPAY ==
--- NOTE | 2022-01-17 07:23 | BI_ITS ---
MAMMOGRAPHY - BILATERAL SCREENING REASON FOR EXAM: Female, 71 years old. Routine annual screening examination. PERTINENT HISTORY: Non-contributory. TECHNIQUE: Digital bilateral breast sophia (3D mammographic acquisition) in the CC and MLO projections. 2-D mediolateral oblique (MLO) and craniocaudad (CC) views of both breasts were obtained. CAD: Full Field Digital Mammography with Computer Added Detection was performed. COMPARISON: Comparison is made with prior study dated 02/02/2020 and 01/31/2019. FINDINGS: Breast Composition: There are scattered areas of fibroglandular density. There are no dominant masses or suspicious calcifications. No other significant abnormalities are identified. There has been no significant change since the prior study. BI/SCRN MAMM (CAD)W/SOPHIA BILAT IMPRESSION: Stable bilateral screening mammogram. Yearly follow-up mammogram recommended. (A) ASSESSMENT CATEGORY: BIRADS Category 1: Negative. A letter regarding these results will be sent to the patient by the facility within 30 days. Approximately 10% of breast cancers are not detected by mammography. A normal mammogram should not delay biopsy of a clinically suspicious abnormality. [id number] Electronically Signed: Prasad Marroquin MD at 8:30 EDT ,
== END | disposition home or self-care (01) ==
LOC: OPBI 07:22
PROVIDERS: PCP Family Medicine; Visit Provider Family Medicine
DX: Z12.31 Encounter for screening mammogram for malignant neoplasm of breast (principal)
CPT/HCPCS: 77063; 77067

== ENCOUNTER → 2022-07-15 | Outpatient (CLI) | payer MEDICARE, SELFPAY ==
[2022-07-15 10:17] LABS: ALB/GLOB Ratio 1.1 RATIO (0.9-2.4); AST(SGOT) 21 U/L (15-37); Alanine Aminotransfer ALT/SGPT 30 U/L (13-56); Albumin, Serum 4.1 g/dL (3.2-5.0); Alkaline Phosphatase 82 U/L (45-117); Anion Gap 7 (5-15); BUN 14 mg/dL (7-18); Chloride 107 mmol/L (98-107); Cholesterol 171 mg/dL (200); Creatinine, Serum 0.93 mg/dL (0.55-1.02); EST Glomerular Filtration Rate 63 mL/min (>60); Est Glom Filt Rate - Afr Amer 76 mL/min (>60); Globulin 3.9 g/dL (2.2-4.2); Glucose 105 mg/dL (74-106); High Density Lipoprotein 69 mg/dL; Potassium 4.4 mmol/L (3.5-5.1); Sodium Level 143 mmol/L (136-145); Triglycerides 95 mg/dL; Very Low Density Lipoprotein 19 mg/dL (5-40)
== END | disposition home or self-care (01) ==
LOC: MTLAB 08:00
PROVIDERS: PCP Family Medicine; Referring Provider Family Medicine; Visit Provider Family Medicine
DX: E78.00 Pure hypercholesterolemia, unspecified (principal); R79.89 Other specified abnormal findings of blood chemistry
CPT/HCPCS: 36415; 80053; 80061

== ENCOUNTER 2022-07-22 11:11 | Outpatient (CLI) | payer MEDICARE, SELFPAY ==
--- NOTE | 2022-07-22 11:20 | RAD_ITS ---
STUDY: X-RAY CHEST REASON FOR EXAM: Female, 72 years old. Persistent cough TECHNIQUE: PA and lateral views of the chest. COMPARISON: None. FINDINGS: The lungs are clear and expanded. There is no demonstrated pleural abnormality. Normal size heart. Normal mediastinum and charbel. Normal visualized pulmonary arteries. Normal visualized aortic arch and descending thoracic aorta. Normal visualized thoracic spine. Normal visualized ribs, clavicles, and shoulders. There is no demonstrated abnormality of the visualized soft tissue structures of the upper abdomen. RAD/Chest PA and Lateral IMPRESSION: Normal x-ray examination of the chest. Electronically Signed: Nahum Gay MD at 11:11 EST ,
[2022-07-22 13:05] LABS: Vitamin D,25 Hydroxy 24.7 ng/mL
== END 2022-07-22 23:59 | disposition home or self-care (01) ==
PROVIDERS: PCP Family Medicine; Referring Provider Family Medicine; Visit Provider Family Medicine
DX: R79.89 Other specified abnormal findings of blood chemistry (principal); R05.3 Chronic cough; E55.9 Vitamin D deficiency, unspecified
CPT/HCPCS: 36415; 71046; 82306

== ENCOUNTER → 2022-09-11 | Outpatient (CLI) | payer MEDICARE, SELFPAY ==
--- NOTE | 2022-09-11 08:54 | RAD_ITS ---
EXAM: XR CHEST, 2 VIEWS CLINICAL INDICATION: BRONCHITIS TECHNIQUE: Frontal and lateral views of the chest. This report was created using [employer] report generation technology. COMPARISON: None. FINDINGS: LUNGS AND PLEURAL SPACES: Unremarkable. No consolidation or edema. No pneumothorax. No effusion. HEART: Unremarkable. Cardiac silhouette not enlarged. MEDIASTINUM: Central airways and mediastinal contour are unremarkable. BONES/JOINTS: Unremarkable. SOFT TISSUES: Unremarkable. VASCULATURE: Atherosclerotic calcifications of the nonenlarged thoracic aortic arch. RAD/Chest PA and Lateral IMPRESSION: No acute disease. Electronically Signed: Felipe Saenz MD at 4:17 EDT ,
== END | disposition home or self-care (01) ==
PROVIDERS: PCP Family Medicine; Referring Provider Family Medicine; Visit Provider Family Medicine
DX: J20.9 Acute bronchitis, unspecified (principal)
CPT/HCPCS: 71046; 87798

== ENCOUNTER 2022-10-09 08:00 | Outpatient (RCR) | payer MEDICARE, SELFPAY ==
--- NOTE | 2022-09-01 10:08 | HP.PTEVAL ---
Patient's Visit Information DARYN LUJAN is a 72 year old F referred to Physical Therapy by Dr. Kwan Milton DO with a diagnosis of Bilateral Knee Pain. Date of Evaluation: 09/01/22 Physical Therapist: Angy Glover DPT - Visit Plan Frequency: 1x/Week Duration: 4 Weeks Plan: Posterior Chain Strengthening- pt has extensive gym program- need to check technique. HEP Given IE: Bridge, Clams, Prone Hip Extn - Subjective Patient reports that she went to see Dr. Pak in May due to knee pain- started in the right knee and then progressed to left- she can also only sit for so long and then she has to get up and move. She had x-rays taken of both knees and they look okay- he said probably bursitis. She had a cortisone injection in the right knee- lessened for a few weeks and then it came back. She is not taking any ant inflam meds due to kidney issues. She has knee pain along the medial joint and radiates all the way down the ankle and up into the sit bones left>right. But is unsure if the sit bone is a different issue. She has never had back issues before. Worst: 11/24 Agg: unsure. She is no longer squatting for exercise. Sometimes its toothache, throbbing or when she turns sometimes its a knife grab then that goes away immediately. Eases: ice, heating pad- nothing is long lasting. Best: -06/27. No N/T. No loss or change in bowel or bladder. She is very active- comes to 3 days a week- she is still walking- she has not stopped moving- she has been coming for years. She does not wear orthotics in her shoes- she changes them. She was walking 1-2 miles a day- in good shoes. Sleep: hard to get comfortable and will wake her up when she rolls over- sleeps with a pillow between her legs. PMHx/Meds: No changes since ortho apt 08/18/22 - Objective Posture: FH, RS- can correct but does not maintain in sitting for long periods of time- does have a lumbar lordotic posture. Stairs: no deviation with asc or desc no HR with asc but does use for desc due to glasses. Balance: good- does have mild hip drop with SLS on solid ground but improves with foam due to increased core engagement with challenge. Palpation: tender along isch tub in the left- and along joint line of bilateral knees. ROM: WFL in all planes. Strength: Core: fair, Hip: Flexion: 4+/5, IR/ER: 4-/5, Abd: 4-/5, Add: 4+/5, Extn: 4-/5, Knee: Extn: 4+/5, Flexion: 4/5, Ankle: 5/5. Flex: HS: mild Gastroc:mild. - Special Tests L/S Slump test left side: Negative L/S Slump test right side: Negative L/S Left Straight Leg Raise: Negative L/S Right Straight Leg Raise: Negative R Hip CHAYITO - Intraarticular Pathology: Negative R Hip FADDIR - Labrum: Negative R Hip Trendelenberg - Glut Medius: Positive L Hip CHAYITO - Intraarticular Pathology: Negative L Hip FADDIR - Labrum: Negative L Hip Trendelenberg - Glut Medius: Positive - Balance/Special Test Scores Lower Extremity Functional Score: 42 - Goals Goal 1:: Patient was able to complete without incidence Goal Time Frame: 4-6 Weeks Goal 2:: Patient will maintain proper posture t/o tx session to demo increased core s/s Goal Time Frame: 4-6 Weeks Goal 3:: Patient will demo SLS without hip drop for 30 sec Goal Time Frame: 4-6 Weeks Goal 4:: Patient will report 80% improvement Goal Time Frame: 4-6 Weeks - Rehabilitation Potential Physical Therapy Diagnosis: Patient presents with hypomobility- she has decreased LE and core strength/stabilization, proprioception and muscular endurance leading to muscular imbalance and increased pain with ADL's. Rehabilitation Potential: Good - Anticipated Interventions Patient/Client Instruction: Educate patient on: Benefits of Fitness Program Therapeutic Exercise to Include: Strength training, Endurance training, Balance training, Coordination, Agility training, Body mechanics, Postural training, Flexibilty training, Gait and locomotor training, Neuromotor development, Dynamic Lumbar Stabilization, Scapular Strength/Stabilization For the Purpose of:: To improve muscle performance and motor function TENS: Yes Cryotherapy (ice pack, ice massage): Yes Thermo therapy (hot pack): Yes Thank you for the opportunity to evaluate your patient. For Medicare and Medicare HMO plans, please review the plan of care and approve it. It will need to be FAXED BACK to us at [phone] for Medicare purposes. For Medicare only, by signing this I certify the plan of care. Please let me know if there are questions or concerns regarding this plan of care. Physician Signature: Date:
--- NOTE | 2022-12-01 14:05 | HP.PT.NRP ---
Patient Information Patient Information: DARYN LUJAN was seen in my office for initial evaluation on 09/01/22. The following Plan of Care was established for this patient: POC Established Initial Frequency: 1x/Week Initial Duration: 4 Weeks Anticipated Interventions Patient/Client Instruction: Educate patient on: Benefits of Fitness Program Therapeutic Exercise to Include: Strength training, Endurance training, Balance training, Coordination, Agility training, Body mechanics, Postural training, Flexibilty training, Gait and locomotor training, Neuromotor development, Dynamic Lumbar Stabilization and Scapular Strength/Stabilization For the Purpose of:: To improve muscle performance and motor function TENS: Yes Cryotherapy (ice pack, ice massage): Yes Thermo therapy (hot pack): Yes Last Seen Last Seen: This patient was last seen in our office 10/09/22. Pertinent comments regarding their Physical therapy will appear below: pt. was seen in PT for her B knee pain. Pt. was doing much better at her last appointment and was to continue on her own. Pt. was to check back in with PT if needed. She has not been seen in ~ 2 months and will be DC from PT at this point in time. At this point I will be discontinuing this patient from physical therapy. I would be happy to see this patient again in the future if found appropriate by the physician. Thank you! Cezar Salcedo, DPT Balance/Gait/Functional tests Balance/Special Test Scores Lower Extremity Functional Score: 55
== END 2022-10-09 19:00 | disposition home or self-care (01) ==
LOC: PT 08:00
PROVIDERS: PCP Family Medicine; Referring Provider Orthopaedic Surgery; Visit Provider Orthopaedic Surgery
DX: M25.561 Pain in right knee (principal); M25.562 Pain in left knee; M70.50 Other bursitis of knee, unspecified knee
CPT/HCPCS: 97110; 97164

== ENCOUNTER → 2022-10-22 | Outpatient (CLI) | payer MEDICARE, SELFPAY | END | disposition home or self-care (01) | LOC: MTLAB 08:33 | PROVIDERS: PCP Family Medicine; Referring Provider Family Medicine; Visit Provider Family Medicine | DX: M85.80 Other specified disorders of bone density and structure, unspecified site (principal) | CPT/HCPCS: 36415; 82306 ==

== ENCOUNTER → 2023-01-16 | Outpatient (CLI) | payer MEDICARE, SELFPAY ==
[2023-01-16 10:17] LABS: Absolute Lymphocyte Count 2.45 X10^3/uL (0.83-4.51); Absolute Neutrophil Count 3.4 X10^3/uL (2.0-7.7); Basophil# 0.04 X10^3/uL; Basophil% 0.6 % (0-1); Eosinophil# 0.51 X10^3/uL; Eosinophils% 7.5 % (0-5); Hematocrit 39.7 % (37-47); Hemoglobin 12.5 g/dL (12.0-15.0); Lymphocyte # 2.45 X10^3/ul (0.83-4.51); Lymphocyte % 36.1 % (19-41); Mean Corp Hgb Conc 31.5 g/dL (32-36); Mean Corpuscular Hgb 30.4 pg (27.0-32.0); Mean Corpuscular Volume 96.6 fL (81-99); Mean Platelet Vol. 10.5 fl (6.2-12.0); Monocyte# 0.43 X10^3/uL; Monocyte% 6.3 % (0-10); NRBC Flagged by Analyzer 0.4 % (0-5); Neutrophil # 3.35 X10^3/uL (2.7-7.7); Neutrophil % 49.4 % (47-70); Platelet Count 251 K/mm3 (150-450); RBC Distribution Width CV 13.2 % (11.6-14.6); RBC Distribution Width SD 46.8 fl (35.1-43.9); Red Blood Count 4.11 M/mm3 (4.2-5.4); White Blood Count 6.8 K/mm3 (4.4-11.0)
[2023-01-16 10:43] LABS: Microalbumin,Random Urine 31.5 mg/L (NO RANGE EST.)
[2023-01-16 10:57] LABS: ALB/GLOB Ratio 1.1 RATIO (0.9-2.4); AST(SGOT) 17 U/L (15-37); Alanine Aminotransfer ALT/SGPT 32 U/L (13-56); Albumin, Serum 3.9 g/dL (3.2-5.0); Alkaline Phosphatase 67 U/L (45-117); Anion Gap 6 (5-15); BUN 20 mg/dL (7-18); BUN/Creat Ratio 18.2 RATIO (10-20); Calcium,Total 9.7 mg/dL (8.5-10.1); Chloride 106 mmol/L (98-107); Cholesterol 167 mg/dL (200); EST Glomerular Filtration Rate 52 mL/min (>60); Est Glom Filt Rate - Afr Amer 63 mL/min (>60); Globulin 3.5 g/dL (2.2-4.2); Glucose 96 mg/dL (74-106); High Density Lipoprotein 74 mg/dL; Potassium 4.3 mmol/L (3.5-5.1); Protein, Total 7.4 g/dL (6.4-8.2); Sodium Level 138 mmol/L (136-145); Triglycerides 122 mg/dL; Very Low Density Lipoprotein 24 mg/dL (5-40)
[2023-01-16 10:59] LABS: Vitamin D,25 Hydroxy 44.1 ng/mL
== END | disposition home or self-care (01) ==
LOC: MTLAB 07:16
PROVIDERS: PCP Family Medicine; Referring Provider Family Medicine; Visit Provider Family Medicine
DX: G47.62 Sleep related leg cramps (principal); R79.89 Other specified abnormal findings of blood chemistry; E78.00 Pure hypercholesterolemia, unspecified; I10 Essential (primary) hypertension
CPT/HCPCS: 36415; 80053; 80061; 82043; 82306; 82570; 85025

== ENCOUNTER → 2023-07-27 | Outpatient (CLI) | payer MEDICARE, SELFPAY ==
[2023-07-27 10:34] LABS: Absolute Lymphocyte Count 1.46 X10^3/uL (0.83-4.51); Absolute Neutrophil Count 3.4 X10^3/uL (2.0-7.7); Basophil# 0.03 X10^3/uL; Basophil% 0.6 % (0-1); Eosinophil# 0.15 X10^3/uL; Eosinophils% 2.8 % (0-5); Hematocrit 38.2 % (37-47); Hemoglobin 12.3 g/dL (12.0-15.0); Lymphocyte # 1.46 X10^3/ul (0.83-4.51); Lymphocyte % 27.3 % (19-41); Mean Corp Hgb Conc 32.2 g/dL (32-36); Mean Corpuscular Hgb 30.2 pg (27.0-32.0); Mean Corpuscular Volume 93.9 fL (81-99); Mean Platelet Vol. 10.9 fl (6.2-12.0); Monocyte# 0.32 X10^3/uL; NRBC Flagged by Analyzer 0 % (0-5); Neutrophil # 3.38 X10^3/uL (2.7-7.7); Neutrophil % 63.1 % (47-70); Platelet Count 288 K/mm3 (150-450); RBC Distribution Width CV 12.8 % (11.6-14.6); RBC Distribution Width SD 43.3 fl (35.1-43.9); Red Blood Count 4.07 M/mm3 (4.2-5.4); White Blood Count 5.4 K/mm3 (4.4-11.0)
[2023-07-27 10:42] LABS: Erythrocyte Sedimentation Rate 5 mm/hr (0-30)
[2023-07-27 10:44] LABS: D-Dimer Quantitative (DVT/PE) 0.43 FEU/ug/m (0.27-0.49)
[2023-07-27 11:27] LABS: ALB/GLOB Ratio 1.1 RATIO (0.9-2.4); AST(SGOT) 18 U/L (15-37); Alanine Aminotransfer ALT/SGPT 27 U/L (13-56); Albumin, Serum 3.9 g/dL (3.2-5.0); Alkaline Phosphatase 74 U/L (45-117); Anion Gap 6 (5-15); BUN 16 mg/dL (7-18); BUN/Creat Ratio 16.6 RATIO (10-20); CRP < 2.90 mg/L (0.0-3.0); Calcium,Total 10.1 mg/dL (8.5-10.1); Chloride 106 mmol/L (98-107); Creatinine, Serum 0.96 mg/dL (0.55-1.02); EST Glomerular Filtration Rate 60 mL/min (>60); Est Glom Filt Rate - Afr Amer 73 mL/min (>60); Globulin 3.7 g/dL (2.2-4.2); Glucose 103 mg/dL (74-106); Protein, Total 7.6 g/dL (6.4-8.2); Sodium Level 139 mmol/L (136-145)
== END | disposition home or self-care (01) ==
LOC: MFPLAB 08:29
PROVIDERS: PCP Family Medicine; Visit Provider Family Medicine
DX: M25.562 Pain in left knee (principal); N18.31 Chronic kidney disease, stage 3a; M25.462 Effusion, left knee; M79.89 Other specified soft tissue disorders
CPT/HCPCS: 36415; 80053; 85025; 85379; 85652; 86140

== ENCOUNTER 2023-09-07 07:25 | Emergency (ER) | payer MEDICARE, SELFPAY ==
[2023-09-07 07:26] VITALS: BP 169/89; PULSE 75; RESP 16; TEMP 36.4; O2SAT 100; BMI 26.4
--- NOTE | 2023-09-07 07:34 | EKG12_ITS ---
Test Reason : DIZZY Blood Pressure : / mmHG Vent. Rate : 065 BPM Atrial Rate : 065 BPM P-R Int : 160 ms QRS Dur : 080 ms QT Int : 420 ms P-R-T Axes : 047 000 007 degrees QTc Int : 436 ms Normal sinus rhythm Nonspecific ST abnormality Abnormal ECG Confirmed by FARHAN CASTANEDA, VIVIENNE ([id number]), newspaper editor CHIDI PAEZ ([id number]) on 09/14/2023 1:19:03 PM Referred By: Confirmed By:MICHA REAL MD
--- NOTE | 2023-09-07 07:35 | EX.ED.DYSGE1 ---
HPI History of Present Illness Chief Complaint: Dizziness Detail of Chief Complaint: Dizziness Informant: patient Narrative Narrative: Patient presents to the emergency department complaint of dizziness. Patient states that she was at [facility] doing floor exercises such as yoga and sit ups. Patient then tried to stand up and felt dizzy like things were spinning around and round. She had to sit back down. EMS was called. Apparently they checked her blood pressure on arrival and noted her blood pressure was actually high. Symptoms worse with trying to sit up. She has history of syncope. She denies chest pain. She denies headache. She does have history years ago of vertigo. She denies nausea or vomiting. Denies diaphoresis. Denies recent illness. [facility] Medical History (Updated 09/07/23 @ 08:[address] Alfredo Fine DO) Hypertension Hypokalemia Home Medications biotin 10,000 mcg capsule 10,000 mcg PO DAILY supplement 11/05/18 [History Last Taken Unknown] calcium carbonate 600 mg-vitamin D3 10 mcg (400 unit) capsule (Calcium 600 with Vitamin D3) 1 cap PO DAILY supplement 11/05/18 [History Last Taken Unknown] hydrochlorothiazide 12.5 mg tablet 12.5 mg PO DAILY bp 11/05/18 [History Last Taken Unknown] multivitamin 1 tab PO DAILY 11/05/18 [History Last Taken Unknown] amlodipine 5 mg tablet 5 mg PO DAILY 04/25/20 [History Last Taken Unknown] fluticasone propionate 50 mcg/actuation nasal spray,suspension 1 spray intranasal DAILY 04/25/20 [History Last Taken Unknown] atorvastatin 20 mg tablet 20 mg PO DAILY 06/02/22 [History Last Taken Unknown] turmeric 400 mg capsule 400 mg PO DAILY 06/02/22 [History Last Taken Unknown] telmisartan 20 mg tablet 20 mg PO DAILY 08/18/22 [History Last Taken Unknown] Allergy/AdvReac Type Severity Reaction Status Date / Time No Known Allergies Allergy Verified 09/07/23 07:34 Family History Mother Hypertension Coronary artery sclerosis Renal failure Father Coronary artery sclerosis Heart disease Surgical History H/O unilateral salpingectomy History of S/P bunionectomy S/P carpal tunnel release S/P oophorectomy Social History Smoking Status: Former smoker alcohol intake: never substance use type: does not use caffeine: Yes what type of physical activity do you participate in: walking, yoga and weight training frequency: 3-4 times per week seatbelt use: always do you feel safe at home: Yes additional social history: - Krzysztof Patient and are both retired ROS ROS ED Review of Systems ROS Unobtainable: other Constitutional Constitutional ED: Reports lethargy; Denies chills, fever(s), sweats or weight loss Eyes Eyes: Denies blurry vision, change in vision or diplopia ENT ENT ED: Denies rhinorrhea or sore throat Cardiovascular Cardiovascular: Denies chest pain, orthopnea or racing heartbeat Respiratory/Chest Respiratory/Chest: Denies cough, dyspnea, dyspnea on exertion, orthopnea or sputum Gastrointestinal Gastrointestinal: Denies abdominal pain, diarrhea, nausea or vomiting Genitourinary Genitourinary ED: Denies dysuria, hematuria or urinary frequency Musculoskeletal Musculoskeletal: Denies arthralgias, back pain, myalgias or neck pain Integumentary Denies abscess, Abrasions or rash Neurologic Neurologic: Reports other Details: Dizziness ; Denies headache(s) or weakness Psychiatric Psychiatric: Denies anxiety, depression or suicidal thoughts Endocrine Endocrinology: Denies polydipsia, polyphagia or polyuria Hematologic/Lymphatic Hematologic/Lymphatic: Denies easy bleeding, easy bruising or lymphadenopathy Allergic/Immunologic Allergic/Immunologic ED: Denies mouth swelling, tongue swelling or urticaria EXAM Physical Exam Const Vital Signs: 09/07/23 07:26 09/07/23 07:52 Temperature 97.5 F L Temperature Source Temporal Pulse Rate 75 Pulse Rate [Lying] 78 Pulse Rate [Sitting (for 1 minute prior to obtaining)] 74 Pulse Rate [Standing (for 1 minute prior to obtaining)] 74 Respiratory Rate 16 Blood Pressure 169/89 H Blood Pressure [Lying] 150/81 H Blood Pressure [Sitting (for 1 minute prior to obtaining)] 166/78 H Blood Pressure [Standing (for 1 minute prior to obtaining)] 162/80 H Blood Pressure Mean 115 Blood Pressure Mean [Lying] 104 Blood Pressure Mean [Sitting (for 1 minute prior to obtaining)] 107 Blood Pressure Mean [Standing (for 1 minute prior to obtaining)] 107 Pulse Ox 100 Oxygen Delivery Method Room Air Positive well nourished and well developed General Appearance ED: well developed and NAD HEENT Reports TM's clear and moist mucous membranes normocephalic and atraumatic; Negative for trauma or tenderness Tympanic Membrane ED: Yes TM's clear Eyes PERRL and EOMs intact bilaterally General Eye ED: Negative for pale conjunctiva or scleral icterus Neck no lymphadenopathy, supple and no JVD General: Negative for tenderness Chest Wall inspection of chest normal and palpation of chest normal Chest: Negative for tenderness Resp normal respiratory effort and clear to auscultation bilaterally Effort and Inspection: Negative for respiratory distress or pain with movement Auscultation: Negative for rhonchi, wheezes or diminished lung sounds Cardio regular rate, regular rhythm, S1 normal heart sound, S2 normal heart sound and no murmurs Peripheral Pulses: pulses 2+ throughout GI normal to inspection, nondistended, normoactive bowel sounds, soft to palpation, non-tender, non-distended and no masses Back/Spine no CVA tenderness and no thoracic nor lumbar tenderness Extremity normal to inspection General Extremety ED: Negative for edema General Extremity: Negative for edema Neuro oriented x3, CN's II-XII intact bilaterally, no sensory deficits noted and gait normal Neuro Narrative: Finger-nose and heel norris testing within normal limits, negative Romberg, negative for drift, Hallpike maneuver performed and negative for nystagmus. Patient currently asymptomatic. Sensorium / Orientation: awake, alert, oriented to person, oriented to place and oriented to time Motor Exam: strength 5/5 throughout and strength abnormal Psych mental status grossly normal Skin no rashes or lesions noted and no wounds MDM MDM MDM Narrative Medical decision making narrative: Patient presents with dizziness and some vertiginous symptoms that started while working out. Currently symptoms have resolved. IV line established on arrival. EKG obtained showed sinus rhythm with rate of [address] changes and unchanged when compared with prior EKG. CBC with differential obtained showed a white count of 9.5 with hemoglobin 13 and platelet count of 308. Chemistries were unremarkable. Troponin normal at 5. Orthostatic vital signs performed here were negative. Her Hallpike maneuver performed was negative for nystagmus. Patient ambulated to the bathroom and back without difficulty. Patient's symptoms completely resolved currently. She has not had chest pain or headache or any other complaints. She does have history of prior syncopal episodes. This point etiology of her dizziness unclear. In the differential would be benign positional vertigo versus vasovagal reaction. Lab Data Attestation: I reviewed the patient's lab results. Labs: Laboratory Results - last 24 hr 09/07/23 07:15 WBC 9.5 RBC 4.40 Hgb 13.0 Hct 40.2 MCV 91.4 MCH 29.5 MCHC 32.3 RDW Std Deviation 43.9 RDW Coeff of Layo 13.1 Plt Count 308 MPV 10.6 Immature Gran % (Auto) 0.300 Neut % (Auto) 50.8 Lymph % (Auto) 39.2 [place] % (Auto) 7.0 Eos % (Auto) 2.2 Baso % (Auto) 0.5 Absolute Neuts (auto) 4.8 Absolute Lymphs (auto) 3.71 Nucleated RBC % 0 Sodium 138 Potassium 3.5 Chloride 104 Carbon Dioxide 29.0 Anion Gap 5 BUN 24 H Creatinine 1.02 Estim Creat Clear Calc 51.58 Est GFR (MDRD) Af Amer 68 Est GFR (MDRD) Non-Af 56 L BUN/Creatinine Ratio 23.5 H Glucose 113 H Calcium 9.8 Troponin I High Sens 5 EKG Initial EKG: Attestation: I personally reviewed and interpreted this EKG as follows: Comments: Sinus rhythm with rate of [address] changes. Unchanged when compared with prior EKG from January 04 Prior EKG tracings: available for review Prior: Unchanged Discharge Plan Triage Chief Complaint: Dizziness ED Provider: Alfredo Fine Dx/Rx/DC Orders Clinical Impression: Dizziness Instructions: ED Dizziness, Uncertain Cause Prescriptions: No Action hydrochlorothiazide 12.5 mg tablet 12.5 mg PO DAILY biotin 10,000 mcg capsule 10,000 mcg PO DAILY calcium carbonate-vitamin D3 600 mg (1,500 mg)-400 unit capsule 600 mg(1,500mg) -400 unit capsule 1 cap PO DAILY multivitamin tablet 1 tab PO DAILY amlodipine 5 mg tablet 5 mg PO DAILY fluticasone propionate 50 mcg/actuation spray,suspension 1 spray INTRANASAL DAILY Rx Instructions: administer into each nostril atorvastatin 20 mg tablet 20 mg PO DAILY turmeric 400 mg capsule 400 mg PO DAILY telmisartan 20 mg tablet 20 mg PO DAILY Primary Care Provider: Torrey Allison Referrals: Torrey Allison MD [Primary Care Provider] - 3-5 Days Disposition Disposition: Home, Self Care
[2023-09-07 07:52] VITALS: BP 150/81; BP 162/80; BP 166/78; PULSE 74; PULSE 78
[2023-09-07 07:59] LABS: Absolute Lymphocyte Count 3.71 X10^3/uL (0.83-4.51); Absolute Neutrophil Count 4.8 X10^3/uL (2.0-7.7); Basophil# 0.05 X10^3/uL; Basophil% 0.5 % (0-1); Eosinophil# 0.21 X10^3/uL; Eosinophils% 2.2 % (0-5); Hematocrit 40.2 % (37-47); Lymphocyte # 3.71 X10^3/ul (0.83-4.51); Lymphocyte % 39.2 % (19-41); Mean Corp Hgb Conc 32.3 g/dL (32-36); Mean Corpuscular Hgb 29.5 pg (27.0-32.0); Mean Corpuscular Volume 91.4 fL (81-99); Mean Platelet Vol. 10.6 fl (6.2-12.0); Monocyte# 0.66 X10^3/uL; NRBC Flagged by Analyzer 0 % (0-5); Neutrophil % 50.8 % (47-70); Platelet Count 308 K/mm3 (150-450); RBC Distribution Width CV 13.1 % (11.6-14.6); RBC Distribution Width SD 43.9 fl (35.1-43.9); White Blood Count 9.5 K/mm3 (4.4-11.0)
[2023-09-07 08:05] LABS: Anion Gap 5 (5-15); BUN 24 mg/dL (7-18); BUN/Creat Ratio 23.5 RATIO (10-20); Calcium,Total 9.8 mg/dL (8.5-10.1); Chloride 104 mmol/L (98-107); Creatinine, Serum 1.02 mg/dL (0.55-1.02); EST Glomerular Filtration Rate 56 mL/min (>60); Est Glom Filt Rate - Afr Amer 68 mL/min (>60); Estimated Creatinine Clearance 51.58 ml/min; Glucose 113 mg/dL (74-106); Potassium 3.5 mmol/L (3.5-5.1); Sodium Level 138 mmol/L (136-145); Troponin-I HS 5 pg/mL (3.0-54.0)
[2023-09-07] MEDS: 0.9% Normal Saline (1000mL) 1,000 ML 150 ML IV (08:05)
[2023-09-07 08:52] VITALS: BP 146/68; PULSE 68; RESP 16; TEMP 36.2; O2SAT 100
== END 2023-09-07 08:54 | disposition home or self-care (01) ==
PROVIDERS: Emergency Provider Emergency Medicine; PCP Family Medicine; Visit Provider Emergency Medicine
DX: R42 Dizziness and giddiness (principal); I10 Essential (primary) hypertension; Z79.899 Other long term (current) drug therapy; Z87.891 Personal history of nicotine dependence
CPT/HCPCS: 80048; 84484; 85025; 93005; 96360; 99285; J7030

== ENCOUNTER → 2024-01-27 | Outpatient (CLI) | payer MEDICARE, SELFPAY ==
[2024-01-27 10:06] LABS: Absolute Lymphocyte Count 2.14 X10^3/uL (0.83-4.51); Basophil# 0.04 X10^3/uL; Basophil% 0.7 % (0-1); Eosinophils% 3.4 % (0-5); Hematocrit 38.3 % (37-47); Hemoglobin 12.3 g/dL (12.0-15.0); Lymphocyte # 2.14 X10^3/ul (0.83-4.51); Lymphocyte % 36.7 % (19-41); Mean Corp Hgb Conc 32.1 g/dL (32-36); Mean Corpuscular Hgb 30.3 pg (27.0-32.0); Mean Corpuscular Volume 94.3 fL (81-99); Mean Platelet Vol. 10.7 fl (6.2-12.0); Monocyte# 0.47 X10^3/uL; Monocyte% 8.1 % (0-10); NRBC Flagged by Analyzer 0 % (0-5); Neutrophil # 2.97 X10^3/uL (2.7-7.7); Neutrophil % 50.9 % (47-70); Platelet Count 307 K/mm3 (150-450); RBC Distribution Width CV 12.8 % (11.6-14.6); RBC Distribution Width SD 44.3 fl (35.1-43.9); Red Blood Count 4.06 M/mm3 (4.2-5.4); White Blood Count 5.8 K/mm3 (4.4-11.0)
[2024-01-27 10:39] LABS: PTHIN 48.9 pg/mL (18.4-80.1)
[2024-01-27 10:41] LABS: Vitamin D,25 Hydroxy 59.6 ng/mL
[2024-01-27 10:43] LABS: ALB/GLOB Ratio 1.1 RATIO (0.9-2.4); AST(SGOT) 23 U/L (15-37); Alanine Aminotransfer ALT/SGPT 23 U/L (13-56); Alkaline Phosphatase 85 U/L (45-117); Anion Gap 7 (5-15); BUN 21 mg/dL (7-18); Calcium,Total 10.3 mg/dL (8.5-10.1); Chloride 107 mmol/L (98-107); EST Glomerular Filtration Rate 58 mL/min (>60); Est Glom Filt Rate - Afr Amer 70 mL/min (>60); Globulin 3.6 g/dL (2.2-4.2); Glucose 97 mg/dL (74-106); Potassium 4.3 mmol/L (3.5-5.1); Protein, Total 7.6 g/dL (6.4-8.2); Sodium Level 142 mmol/L (136-145)
[2024-01-27 11:20] LABS: Microalbumin,Random Urine 27.1 mg/L (NO RANGE EST.); Microalbumin:Creatinine Ratio 11.6 mg/g CRE (<30 mg/g CRE)
== END | disposition home or self-care (01) ==
LOC: MTLAB 07:41
PROVIDERS: PCP Family Medicine; Referring Provider Family Medicine; Visit Provider Family Medicine
DX: N18.31 Chronic kidney disease, stage 3a (principal); M85.80 Other specified disorders of bone density and structure, unspecified site
CPT/HCPCS: 36415; 80053; 82043; 82306; 82570; 83970; 85025

== ENCOUNTER → 2024-02-25 | Outpatient (CLI) | payer MEDICARE, SELFPAY ==
--- NOTE | 2024-02-25 10:49 | BD_ITS ---
STUDY: DUAL ENERGY X-RAY ABSORPTIOMETRY / DXA REASON FOR EXAM: Female, 73 years old. V76.12ScreeningBONE DENSITY REASON FOR EXAM TECHNIQUE: Bone Mineral Density (BMD) measurements of lumbar spine and bilateral hips were obtained. COMPARISON: Comparison is made with prior study February 02, 2020. FINDINGS: Lumbar Spine (L1-L4): g/cm2 (0.888) / T-score (-1.4) / Z-score (0.9) Findings are suggestive of osteopenia with a low fracture risk. Left Femur Total: g/cm2 (0.860) / T-score (0.7) / Z-score (1.1) Left Femoral Neck: g/cm2 (0.738) / T-score (-1.0) / Z-score (1.1) Right Femur Total: g/cm2 (0.893) / T-score (-0.4) / Z-score (1.4) Right Femoral Neck: g/cm2 (0.704) / T-score (-1.3) / Z-score (0.8) The T-Scores on the most recent prior examination were: Lumbar Spine (L1-L4): There has been worsening of bone density since the previous examination. Left Femur Total: which represents a worsening of 9.3%. Right Femur Total: which represents a worsening of 6.7%. BD/Dexa Bone Density Study IMPRESSION: The patient is considered osteopenic as outlined below according to World Josh Organization (WHO) criteria with a low fracture risk. There has been worsening of bone density since the previous examination. Reference Information: The T-score is the number of standard deviations above or below the standard which is normal for young adults at their peak bone mineral density. The World Health Organization (WHO) interprets the T-scores as follows: Above -1 Normal bone density Between -1 and -2.5 Osteopenia Equal to / or below -2.5 Osteoporosis As a practical clinical guideline, osteopenia may be graded as follows: Mild -1 through -1.5 Moderate -1.6 through -2.0 Severe -2.1 through -2.4 The Z-score is the number of standard deviations above or below age-matched controls. A Z-score of less than -1.5 would be considered abnormal. References: 1. NIH Osteoporosis and Related Bone Diseases www osteo.org 2. International Society for Clinical Densitometry www iscd.org 3. National Osteoporosis Foundation www nof.org Electronically Signed: Prasad Marroquin MD at 11:49 EDT ,
== END | disposition home or self-care (01) ==
PROVIDERS: PCP Family Medicine; Referring Provider Nurse Practitioner Family; Visit Provider Nurse Practitioner Family
DX: Z78.0 Asymptomatic menopausal state (principal)
CPT/HCPCS: 77080

== ENCOUNTER → 2024-04-13 | Outpatient (CLI) | payer MEDICARE, SELFPAY ==
--- NOTE | 2024-04-13 13:54 | BI_ITS ---
MAMMOGRAPHY - BILATERAL SCREENING 3-D TOMOSYNTHESIS REASON FOR EXAM: Female, 73 years old. Routine screening PERTINENT HISTORY: No significant family history. TECHNIQUE: 2-D mammograms and 3-D Tomosynthesis of the breast (s) were performed. CAD was performed. COMPARISON: 01/31/2019 FINDINGS: The breast composition is composed of scattered fibroglandular density. Scattered benign calcifications are seen. No dense spiculated masses or suspicious microcalcifications are identified. No architectural distortion is identified. There is no skin thickening or retraction. There has been no significant change since the prior study. BI/SCRN MAMM (CAD)W/SOPHIA BILAT IMPRESSION: No mammographic signs of malignancy. Routine yearly mammograms recommended. ASSESSMENT CATEGORY: BIRADS Category 1: Negative. A letter regarding these results will be sent to the patient by the facility within 30 days. FOLLOW UP RECOMMENDATION: Yearly follow up mammogram recommended. (A) Approximately 10% of breast cancers are not detected by mammography. A normal mammogram should not delay biopsy of a clinically suspicious abnormality. Electronically Signed: Nahum Gay MD at 14:47 EST ,
== END | disposition home or self-care (01) ==
LOC: OPBI 13:53
PROVIDERS: PCP Family Medicine; Referring Provider Family Medicine; Visit Provider Family Medicine
DX: Z12.31 Encounter for screening mammogram for malignant neoplasm of breast (principal)
CPT/HCPCS: 77063; 77067

== ENCOUNTER → 2024-06-27 | Outpatient (CLI) | payer MEDICARE, SELFPAY ==
[2024-06-27 11:18] LABS: ALB/GLOB Ratio 1.1 RATIO (0.9-2.4); AST(SGOT) 19 U/L (15-37); Alanine Aminotransfer ALT/SGPT 23 U/L (13-56); Albumin, Serum 3.9 g/dL (3.2-5.0); Alkaline Phosphatase 75 U/L (45-117); Anion Gap 8 (5-15); BUN 18 mg/dL (7-18); BUN/Creat Ratio 20.2 RATIO (10-20); Chloride 108 mmol/L (98-107); Creatinine, Serum 0.89 mg/dL (0.55-1.02); EST Glomerular Filtration Rate 66 mL/min (>60); Est Glom Filt Rate - Afr Amer 79 mL/min (>60); Globulin 3.5 g/dL (2.2-4.2); Glucose 88 mg/dL (74-106); Potassium 3.8 mmol/L (3.5-5.1); Protein, Total 7.4 g/dL (6.4-8.2); Sodium Level 143 mmol/L (136-145)
[2024-06-27 11:46] LABS: Microalbumin,Random Urine 9.9 mg/L (NO RANGE EST.); Microalbumin:Creatinine Ratio 20.9 mg/g CRE (<30 mg/g CRE)
== END | disposition home or self-care (01) ==
LOC: MTLAB 08:01
PROVIDERS: PCP Family Medicine; Referring Provider Family Medicine; Visit Provider Family Medicine
DX: I10 Essential (primary) hypertension (principal)
CPT/HCPCS: 36415; 80053; 82043; 82570

== ENCOUNTER 2025-01-25 09:30 | Outpatient (RCR) | payer MEDICARE, SELFPAY ==
--- NOTE | 2025-01-02 09:48 | HP.PTEVAL_ITS ---
Patient's Visit Information Visit Information Visit Information: DARYN LUJAN is a 74 year old F referred to Physical Therapy by Dr. Crow Worthy DO with a diagnosis of R RC impingement. Date of Evaluation: 01/02/25 Physical Therapist: MAYO Chicas Visit Plan Frequency: 2x /Week Duration: 4 Weeks Plan: 2X/ week for 4 week for scapular retraction/strengthening, RC strengthening (starting with HEP and then moving to gym exercises for independence), with HEP Focus on good indep form with the pt (scapular retraction) HEP: mid ROWS (pink band), standing ER/IR pink band, and corner stretch Subjective Subjective: Pt had an injection a week or so ago and now it is feeling pretty good. She was able to do things but it was painful and keep her awake at night. She was doing a lot of trimming with hedge clippers and it started after that. She had first injection in Jun and helped some and then the second shot helped a lot. She wanted to do PT to make sure what she is doing. said no "pressing" exercises. She does not have her full ROM. Her R hand is limited in ROM and she is R handed, especially with IR. She has more of an ache in her shoulder now. She can lay on her R shoulder. Pain R shoulder pain: Pain Intensity (Out of 10): 1 Objective Objective: R handed: 50# R and 55# L Shoulder AROM: R shoulder flexion 157 and L 161 R shoulder ABD WFL B R shoulder IR L1 and L T5 (increase pain) R shoulder ER 59 and L 65 UE MMT: R shoulder flex 6.4 and L 9.5 R shoulder ABD 6.6 and L 8.5 R shoulder ER 6.4 and L 6.1 R shoulder IR 7 and L 8.1 Pt has pain with full extension of the R arm in the anterior shoulder. Pt had some increase pain with corner stretch in the anterior shoulder Balance/Special Test Scores Quick DASH Score: 11.3625 Goals Goal 1:: I HEP Goal Time Frame: 4-6 Weeks Goal 2:: Be able to increase R SHOULDER STRENGTH (at the time of the eval: UE MMT: R shoulder flex 6.4 and L 9.5 R shoulder ABD 6.6 and L 8.5 R shoulder ER 6.4 and L 6.1 R shoulder IR 7 and L 8.1). Goal Time Frame: 4-6 Weeks Goal 3:: Increase R shoulder AROM (at the time of the eval: Shoulder AROM: R shoulder flexion 157 and L 161 R shoulder ABD WFL B R shoulder IR L1 and L T5 (increase pain) R shoulder ER 59 and L 65) Goal Time Frame: 4-6 Weeks Goal 4:: Be able to resume workout without pain Goal Time Frame: 4-6 Weeks Goal 5:: Be able to maintain good scapular retraction and not use her mid trap to help use her R UE. Goal Time Frame: 4-6 Weeks Rehabilitation Potential Rehabilitation Potential: Good Anticipated Interventions Patient/Client Instruction: Educate patient on: Condition and Plan of Care For the Purpose of:: To decrease pain, To increase ROM, To improve nutrient delivery to tissue, To improve muscle performance and motor function, To improve ability to perform ADL's, To increase tolerance to activity/condition/position, To improve performance and independence with ADL's, To improve health of tissue, To decrease soft tissue restriction, To increase flexibility/ROM and To improve endurance Therapeutic Exercise to Include: Strength training, Postural training, Flexibilty training, Neuromotor development, Passive ROM, Active ROM and Scapular Strength/Stabilization For the Purpose of:: To decrease pain, To increase ROM, To improve muscle performance and motor function, To improve ability to perform ADL's, To increase tolerance to activity/condition/position, To improve performance and independence with ADL's, To improve ability of physical actions for home/community/work/leisure, To improve health of tissue, To decrease soft tissue restriction and To increase flexibility/ROM Manual Therapy Techniques to Include: Passive ROM and Soft tissue mobilization For the Purpose of:: To decrease pain, To increase ROM, To improve nutrient delivery to tissue, To improve health of tissue, To decrease soft tissue restriction and To increase flexibility/ROM Cryotherapy (ice pack, ice massage): Yes Thermo therapy (hot pack): Yes For the Purpose of:: To decrease pain, To decrease swelling/inflammation and To improve nutrient delivery to tissue Text: Thank you for the opportunity to evaluate your patient. For Medicare and Medicare HMO plans, please review the plan of care and approve it. It will need to be FAXED BACK to us at [phone] for Medicare purposes. For Medicare only, by signing this I certify the plan of care. Please let me know if there are questions or concerns regarding this plan of care. Physician Signature: Date:
--- NOTE | 2025-01-25 10:07 | HP.PTDCSUM ---
Discharge Summary D/C summary: It has been my pleasure to treat DARYN LUJAN referred by Dr. Crow Worthy DO, with the diagnosis of R RC impingement for a total of 6 visit(s). Discharge Date: 01/25/25 Please see the following information for a summary of their discharge status. Subjective Subjective: She is doing pretty good. She has not had pain for awhile. It has been really good. She has her HEP and will keep up with those. Pain R shoulder pain: Pain Intensity (Out of 10): 0 Overall Improvement % Improvement: 75 Objective Objective/Function: R shoulder flexion 162 and L 161 R shoulder ABD WFL B R shoulder IR T10 and L T5 (increase pain) R shoulder ER 75 and L 65) MMT R shoulder flex 7.9 and L 9.5 R shoulder ABD 8.9 and L 8.5 R shoulder ER 6.4 and L 6.1 R shoulder IR 7 and L 8.1). Goals Goal 1:: I HEP Goal Progress: Goal Met Goal 2:: Be able to increase R SHOULDER STRENGTH (at the time of the eval: UE MMT: R shoulder flex 6.4 and L 9.5 R shoulder ABD 6.6 and L 8.5 R shoulder ER 6.4 and L 6.1 R shoulder IR 7 and L 8.1). Goal Progress: Goal Met Goal 3:: Increase R shoulder AROM (at the time of the eval: Shoulder AROM: Goal Progress: Goal Met Goal 4:: Be able to resume workout without pain Goal Progress: Goal Met Goal 5:: Be able to maintain good scapular retraction and not use her mid trap to help use her R UE. Goal Progress: Goal Met Plan Plan: 2X/ week for 4 week for scapular retraction/strengthening, RC strengthening (starting with HEP and then moving to gym exercises for independence), with HEP Focus on good indep form with the pt (scapular retraction). D/C Information Discharge Comments: DC PT to indep gym routine d/c sentence: If there are questions or concerns regarding this patient's physical therapy, please feel free to call me at [phone]. Thank you for the referral of this patient. Sincerely, Sanjuanita Abraham, MPT Balance/Gait/Functional tests Balance/Special Test Scores Quick DASH Score: 9.0900 Improvement % Improvement: 75
== END 2025-01-25 19:00 | disposition home or self-care (01) ==
LOC: PT 09:30
PROVIDERS: PCP Family Medicine; Referring Provider Orthopaedic Surgery; Visit Provider Orthopaedic Surgery
DX: M75.101 Unspecified rotator cuff tear or rupture of right shoulder, not specified as traumatic (principal)
CPT/HCPCS: 97110; 97161; 97530

== ENCOUNTER → 2025-02-03 | Outpatient (CLI) | payer MEDICARE, SELFPAY ==
[2025-02-03 10:54] LABS: Hematocrit 33.9 % (37-47); Hemoglobin 11.3 g/dL (12.0-15.0); Immature Granulocytes Count 0.020 X10^3/uL (0.0-0.0); Mean Corp Hgb Conc 33.3 g/dL (32-36); Mean Corpuscular Volume 91.9 fL (81-99); Mean Platelet Vol. 10.5 fl (6.2-12.0); NRBC Flagged by Analyzer 0 % (0-5); Platelet Count 311 K/mm3 (150-450); RBC Distribution Width CV 12.7 % (11.6-14.6); RBC Distribution Width SD 42.4 fl (35.1-43.9); Red Blood Count 3.69 M/mm3 (4.2-5.4); White Blood Count 7.4 K/mm3 (4.4-11.0)
[2025-02-03 11:17] LABS: Microalbumin,Random Urine < 12.0 mg/L (<20 mg/L)
[2025-02-03 12:13] LABS: PTHIN 41 pg/mL (11-61)
[2025-02-03 12:29] LABS: AST(SGOT) 24 U/L (<=31); Alanine Aminotransfer ALT/SGPT 22 U/L (<=34); Albumin, Serum 4.3 g/dL (3.4-4.8); Alkaline Phosphatase 75 U/L (35-104); Anion Gap 12 (5-15); BUN 14 mg/dL (4-19); BUN/Creat Ratio 17.5 RATIO (10-20); Calcium,Total 10.1 mg/dL (7.6-11.0); Carbon Dioxide 24.6 mmol/L (21.0-32.0); Chloride 105 mmol/L (98-108); Cholesterol 160 mg/dL (<=200); Globulin 2.5 g/dL (2.2-4.2); Glucose 89 mg/dL (70-99); Low Density Lipoprotein Calc. 70 mg/dL; Potassium 3.7 mmol/L (3.3-5.1); Triglycerides 85 mg/dL; Very Low Density Lipoprotein 17 mg/dL (5-40); Vitamin D,25 Hydroxy 70.3 ng/mL (30-100); cholesterol:hdl ratio screen 2.19
== END | disposition home or self-care (01) ==
LOC: MTLAB 08:14
PROVIDERS: PCP Family Medicine; Referring Provider Family Medicine; Visit Provider Family Medicine
DX: I12.9 Hypertensive chronic kidney disease with stage 1 through stage 4 chronic kidney disease, or unspecified chronic kidney disease (principal); N18.31 Chronic kidney disease, stage 3a; E78.00 Pure hypercholesterolemia, unspecified
CPT/HCPCS: 36415; 80053; 80061; 82043; 82306; 83970; 85025

== ENCOUNTER → 2025-02-08 | Outpatient (CLI) | payer MEDICARE, SELFPAY ==
[2025-02-08 12:30] LABS: Immature Reticulocyte Fraction 11.00 % (3.00-15.90); Platelet Count 265 K/mm3 (150-450); Reticulocyte Count 1.42 % (0.5-1.5)
[2025-02-08 12:57] LABS: Ferritin 93 ng/mL (22-378); Iron 63 ug/dL (50-170); Iron Binding Capacity,Total 300 ug/dL (250-450); Iron Binding Capacity,Unsat 237 ug/dL (228-428); Vitamin B12 337 pg/mL (180-914)
[2025-02-08 13:25] LABS: FOLATES,SERUM (FOLIC ACID) 29.90 ng/mL (4.60-34.80)
== END | disposition home or self-care (01) ==
LOC: MFPLAB 10:27
PROVIDERS: PCP Family Medicine; Visit Provider Family Medicine
DX: D64.9 Anemia, unspecified (principal)
CPT/HCPCS: 36415; 82607; 82728; 82746; 83540; 83550; 85045

== ENCOUNTER → 2025-03-24 | Outpatient (CLI) | payer MEDICARE, SELFPAY ==
--- NOTE | 2025-03-24 10:16 | RAD_ITS ---
PROCEDURE: RAD/Lumbar Spine 2 or 3 Views
== END | disposition home or self-care (01) ==
LOC: MTRAD 10:15
PROVIDERS: PCP Family Medicine; Referring Provider Family Medicine; Visit Provider Family Medicine
DX: M25.551 Pain in right hip (principal); M25.552 Pain in left hip
CPT/HCPCS: 72100

== ENCOUNTER → 2025-05-17 | Outpatient (CLI) | payer SELFPAY | END | disposition home or self-care (01) | LOC: CT 13:21 | PROVIDERS: PCP Family Medicine; Referring Provider Family Medicine; Visit Provider Family Medicine | DX: E78.00 Pure hypercholesterolemia, unspecified (principal) | CPT/HCPCS: 75571; 76380 ==